=== PATIENT | female | born 1955 | race Caucasian/White ===

== ENCOUNTER 2020-04-27 14:57 | Outpatient (REF) | payer OTHER, SELFPAY ==
[2020-04-27 17:17] LABS: COVID-19 Test Negative (Negative)
== END 2020-04-27 14:58 | disposition home or self-care (01) ==
LOC: HO.LAB 14:57
PROVIDERS: Visit Provider Internal Medicine
DX: Z20.828 Contact with and (suspected) exposure to other viral communicable diseases (principal)
CPT/HCPCS: 87635

== ENCOUNTER 2020-05-22 14:03 | Outpatient (REF) | payer OTHER, SELFPAY ==
--- NOTE | 2020-05-22 14:34 | XR_ITS ---
EXAMINATION: XR SHOULDER, RIGHT CLINICAL INFORMATION: Pain in right shoulder COMPARISON: None TECHNIQUE: Three views of the right shoulder. FINDINGS: No fracture or dislocation. The glenohumeral joint is well aligned. The joint space is maintained. Mild hypertrophic degenerative change of the acromioclavicular joint. The visualized lung is clear. The visualized ribs are intact. XR/XR shoulder RT min 2V IMPRESSION: Mild degenerative changes of the right acromioclavicular joint.
== END 2020-05-22 14:04 | disposition home or self-care (01) ==
LOC: HO.HOSX 14:03
PROVIDERS: PCP Internal Medicine; Visit Provider Orthopaedic Surgery
DX: M25.511 Pain in right shoulder (principal); M19.011 Primary osteoarthritis, right shoulder
CPT/HCPCS: 73030; J1040

== ENCOUNTER 2020-10-29 10:43 | Outpatient (REF) | payer OTHER, SELFPAY ==
--- NOTE | ~2020-10-29 | US_ITS ---
EXAMINATION: US VENOUS ULTRASOUND WITH DOPPLER LOWER EXTREMITY, LEFT CLINICAL INFORMATION: Left leg pain and swelling. COMPARISON: None TECHNIQUE: Ultrasound of the deep veins is performed from the hip to the calf with compression sonography and color and pulse Doppler assessment. Spectral analysis with color-flow imaging is performed. FINDINGS: There is normal venous compression and respiratory variation and augmented flow. The visualized common femoral vein, superficial femoral vein, profunda femoral vein, popliteal vein, and the trifurcation region shows no evidence of deep venous thrombosis. There is a superficial thrombophlebitis of a varicosity that communicates with the left greater saphenous vein in the left mid and distal thigh. US/US venous duplex LE LT IMPRESSION: No evidence of DVT. Left mid and distal thigh superficial thrombophlebitis.
== END 2020-10-29 10:44 | disposition home or self-care (01) ==
LOC: HO.US 10:43
PROVIDERS: PCP Internal Medicine; Visit Provider Internal Medicine
DX: M79.605 Pain in left leg (principal); M79.89 Other specified soft tissue disorders
CPT/HCPCS: 93971

== ENCOUNTER → 2020-11-29 15:31 | Outpatient (BNVA) | payer OTHER, SELFPAY | PROVIDERS: PCP Internal Medicine; Visit Provider Surgery Vascular Surgery ==

== ENCOUNTER 2020-12-18 12:53 | Outpatient (REF) | payer OTHER, SELFPAY ==
--- NOTE | ~2020-12-18 | US_ITS ---
EXAMINATION: BILATERAL LOWER EXTREMITY VENOUS ULTRASOUND (Reflux Exam) CLINICAL INDICATION: This is a 65-year-old female with varicose veins. Venous insufficiency. COMPARISON: None. TECHNIQUE: Color flow triplex imaging and compression Doppler was performed to evaluate both the deep and the superficial systems bilaterally. To evaluate the superficial system, the examination was performed in the upright position. Color-flow Doppler ultrasound and compression ultrasound were utilized. In addition, maneuvers were utilized to demonstrate reflux. FINDINGS: 1. DEEP VENOUS ULTRASOUND OF THE RIGHT LOWER EXTREMITY: Common Femoral Vein: Compressible, normal respiratory variation and augmented flow. Femoral vein: Compressible, normal color flow and augmentation. Popliteal Vein: There is reflux in the right popliteal vein of 4016 ms. Deep Reflux: There is no evidence of reflux in the deep system in the common femoral vein however there is reflux in the popliteal vein. . There is no evidence of a Enriquez's cyst. 2. SUPERFICIAL ULTRASOUND WITH DOPPLER OF RIGHT LOWER EXTREMITY GREAT SAPHENOUS VEIN: Saphenofemoral junction: 1.0 cm. The reflux time at the junction is 1472 ms. Mid thigh: 0.2 cm. The reflux time is 648 ms. Above knee: 0.2 cm. There is no reflux at this level. Below knee: 0.2 cm. The reflux time is 3416 ms. Mid calf: 0.2 cm. The reflux time is 1784 ms per Ankle: 0.2 cm. There is no reflux this level. GSV REFLUX: There is great saphenous vein reflux which is also seen at the junction. DUPLICATED GREAT SAPHENOUS VEIN: None SMALL SAPHENOUS VEIN: Upper: 0.2 cm Lower: 0.1 cm SSV REFLUX: No evidence of reflux. VEIN OF GIACOMINI: None Imaged. PERFORATORS: There are 0.2 and 0.4 cm hob grinder seen in the mid thigh and calf, respectively, without evidence of reflux. VARICOSITIES: There are 0.5 cm proximal thigh varicose veins with reflux time of 3436 ms. 3. DEEP VENOUS ULTRASOUND OF THE LEFT LOWER EXTREMITY: Common Femoral Vein: There is reflux in the common femoral vein of 1028 ms. Femoral vein: Compressible, normal color flow and augmentation. Popliteal Vein: Compressible, normal augmentation. Deep Reflux: There is no evidence of reflux in the deep system in either the common femoral vein but not the popliteal vein. There is no evidence of a Enriquez's cyst. 4. SUPERFICIAL ULTRASOUND WITH DOPPLER OF LEFT LOWER EXTREMITY GREAT SAPHENOUS VEIN: Saphenofemoral junction: 0.8 cm. There is no reflux at the junction. Mid thigh: 0.2 cm. The reflux time is 3360 ms. Above knee: 0.3 cm. The reflux time is 3348 ms. Below knee: 0.2 cm there is there is no reflux. Mid calf: 0.3 cm. The reflux time is 3104 ms. Ankle: 0.2 cm. The reflux time is 2500 ms. GSV REFLUX: There is reflux in the great saphenous vein but not present at the junction. DUPLICATED GREAT SAPHENOUS VEIN: None SMALL SAPHENOUS VEIN: Upper: 0.3 cm. There is no reflux at the junction. Lower: 0.2 cm. There is reflux in the mid calf as well as the distal calf. The distal calf reflux measures 1200 ms. SSV REFLUX: No evidence of reflux. VEIN OF GIACOMINI: None Imaged. PERFORATORS: There are 0.2 cm mid thigh perforators with reflux. VARICOSITIES: There are 0.3 cm varicose veins in the proximal thigh, at the knee, proximal calf with greater than 3 seconds of reflux throughout. US/US venous duplex LE BI IMPRESSION: 1. There is a patent right great saphenous vein with reflux at the saphenofemoral junction. 2. There is a patent right small saphenous vein without evidence of reflux. 3. There are perforators in the right leg without reflux. 4. There are varicose veins in the proximal thigh with greater than 3 seconds of reflux. 5. There is a patent left great saphenous vein without evidence of reflux at the junction. However, there is reflux extending throughout the remainder of the great saphenous vein. 6. There is a patent left small saphenous vein without reflux junction. However, there is reflux below this level. 7. There is a mid thigh hob grinder without reflux. 8. There are varicose veins present as noted throughout the left leg with greater than 3 seconds of reflux. 9. Deep vein reflux as noted bilaterally. In particular, the right popliteal vein and left common femoral vein, respectively.
== END 2020-12-18 12:54 | disposition home or self-care (01) ==
LOC: HO.US 12:53
PROVIDERS: Visit Provider Surgery Vascular Surgery
DX: I83.893 Varicose veins of bilateral lower extremities with other complications (principal); I83.12 Varicose veins of left lower extremity with inflammation
CPT/HCPCS: 93970

== ENCOUNTER → 2021-01-08 15:31 | Outpatient (BNVA) | payer OTHER, SELFPAY | PROVIDERS: PCP Internal Medicine; Visit Provider Surgery Vascular Surgery ==

== ENCOUNTER → 2021-02-22 08:25 | Outpatient (BNVA) | payer OTHER, SELFPAY | PROVIDERS: PCP Internal Medicine; Visit Provider Surgery Vascular Surgery | DX: I83.12 Varicose veins of left lower extremity with inflammation (principal) | CPT/HCPCS: 36475 ==

== ENCOUNTER 2021-02-25 11:16 | Outpatient (REF) | payer OTHER, SELFPAY ==
--- NOTE | ~2021-02-25 | US_ITS ---
EXAMINATION: US VENOUS ULTRASOUND WITH DOPPLER LOWER EXTREMITY, LEFT CLINICAL INFORMATION: This is a 65-year-old female who status post left leg radiofrequency ablation. COMPARISON: Comparison is made to a previous study dated 12/18/2020. TECHNIQUE: Ultrasound of the deep veins is performed from the hip to the calf with compression sonography and color and pulse Doppler assessment. Spectral analysis with color-flow imaging is performed. FINDINGS: There is normal venous compression and respiratory variation and augmented flow. The visualized common femoral vein, superficial femoral vein, profunda femoral vein, popliteal vein, and the trifurcation region shows no evidence of deep venous thrombosis. There is no significant popliteal fossa cyst. The left great saphenous vein appears to be closed. The occluded segment of left great saphenous vein begins 3.6 cm from the saphenofemoral junction. There is no extension of thrombus into the deep venous system. US/US venous duplex LE LT IMPRESSION: 1. No DVT demonstrated in the left lower extremity. 2. The left great saphenous vein appears close.
== END 2021-02-25 11:17 | disposition home or self-care (01) ==
LOC: HO.US 11:16
PROVIDERS: PCP Internal Medicine; Visit Provider Surgery Vascular Surgery
DX: M79.605 Pain in left leg (principal)
CPT/HCPCS: 93971

== ENCOUNTER → 2021-03-05 09:21 | Outpatient (BNVA) | payer OTHER, SELFPAY | PROVIDERS: PCP Internal Medicine; Referring Provider Internal Medicine; Visit Provider Surgery Vascular Surgery ==

== ENCOUNTER 2021-05-08 07:59 | Outpatient (REF) | payer OTHER, SELFPAY ==
--- NOTE | ~2021-05-08 | MM_ITS ---
EXAMINATION: MM SCREENING DIGITAL BREAST TOMOSYNTHESIS, LEFT CLINICAL INFORMATION: Screening. Asymptomatic. Due for yearly. Prior right mastectomy for breast cancer, 2013. COMPARISON: Mammography: 03/15/2020, 10/12/2018, 08/12/2017, 04/13/2015 TECHNIQUE: Digital breast tomosynthesis is performed in both the craniocaudal and mediolateral oblique views along with computer-aided detection (CAD). Synthesized 2D images are generated from the tomosynthesis. Additional exaggerated left CC view is provided. FINDINGS: There are scattered areas of fibroglandular density (ACR BI-RADS breast composition Category b). There are no significant masses, abnormal calcifications, or other abnormalities. Parenchymal pattern is similar to prior studies. There is no developing density. The axilla and skin contours are unremarkable. MM/MM tomosynthesis screening LT IMPRESSION: No mammographic evidence of malignancy. ASSESSMENT: BI-RADS 1: Negative RECOMMENDATION: Routine annual mammography screening. This patient's information was entered into a reminder system with a target due date for their next mammogram.
== END 2021-05-08 08:00 | disposition home or self-care (01) ==
LOC: HO.MAMMO 07:59
PROVIDERS: PCP Internal Medicine; Referring Provider Obstetrics & Gynecology; Visit Provider Internal Medicine
DX: Z12.31 Encounter for screening mammogram for malignant neoplasm of breast (principal)
CPT/HCPCS: 77063; 77067

== ENCOUNTER 2021-07-04 05:34 | Outpatient (REF) | payer OTHER, SELFPAY ==
--- NOTE | ~2021-07-04 | XR_ITS ---
EXAMINATION: XR HAND, RIGHT CLINICAL INFORMATION: Right hand pain. COMPARISON: None TECHNIQUE: PA, lateral, and oblique views of the right hand. FINDINGS: Mild to moderate interphalangeal, second metacarpophalangeal, first carpometacarpal and triscaphe degenerative joint changes are seen. Interphalangeal degenerative joint changes are most pronounced in the distal interphalangeal joint of the second digit. There is no acute fracture or dislocation. The carpal bones are normally aligned. The distal radius and ulna are intact. The soft tissues show mild swelling most pronounced in the second digit. XR/XR hand RT min 3V IMPRESSION: Mild to moderate multilevel degenerative changes most consistent with osteoarthritis. No acute abnormality.
== END 2021-07-04 05:35 | disposition home or self-care (01) ==
LOC: HO.HOSX 05:34
PROVIDERS: Visit Provider Physician Assistant
DX: M18.11 Unilateral primary osteoarthritis of first carpometacarpal joint, right hand (principal)
CPT/HCPCS: 20600; 73130; J1020

== ENCOUNTER 2021-08-01 10:25 | Outpatient (REF) | payer OTHER, SELFPAY ==
--- NOTE | ~2021-08-01 | MM_ITS ---
EXAMINATION: BONE DENSITOMETRY CLINICAL INDICATION: Asymptomatic menopausal state. COMPARISON: None (current study represents initial baseline exam). TECHNIQUE: Using a [employer] DXA System (software version: 13.1) manufactured by [employer], dual-energy x-ray absorptiometry was performed of the lumbar spine and left hip. The images are of good technical quality. Summary results are attached. FINDINGS: AP SPINE L1-L4: BMD 1.246 g/cm2, Z-score 2.1, T-score 0.6, normal. LEFT FEMUR, NECK: BMD 0.651 g/cm2, Z-score -1.3, T-score -2.8, osteoporosis. LEFT FEMUR, TOTAL: BMD 0.756 g/cm2, Z-score -0.8, T-score -2.0, osteopenia. IDENTIFIED RISK FACTORS: Rheumatoid arthritis, menopause. HISTORY OF FRACTURE: None listed. MEDICATIONS: Multivitamin. MM/XR DEXA axial skeleton IMPRESSION: 1. DIAGNOSIS: Osteoporosis based on the lowest T-score value of -2.8 in the femoral neck applying World Health Organization criteria. 2. 10 10-YEAR FRACTURE RISK PREDICTION, FRAX: According to the guidelines, FRAX calculation should only be performed on patients in the osteopenia bone density category. 3. Treatment Recommendations: NOF guidelines recommend consideration for treatment in postmenopausal women and men age 50 and older presenting with the following: -A hip or vertebral (clinical or morphometric) fracture. -T-score less than or equal to -2.5 at the femoral neck or spine after appropriate evaluation to exclude secondary causes. -Low bone mass at the hip or spine and a 10-year fracture probability by FRAX of greater than or equal to 3% for hip fracture or greater than or equal to 20% for major osteoporotic fracture based on the [place] adapted WHO algorithm. 4. Other Recommendations: All treatment decisions require clinical judgment and consideration of individual patient factors, including patient preferences, comorbidities, previous drug use, risk factors not captured in the FRAX model (e.g. frailty, falls, vitamin D deficiency, increased bone turnover, interval significant decline in bone density) and possible under or overestimation of fracture risk by FRAX. Additional medical evaluation for secondary cause of low bone mineral density may be appropriate. FUTURE SCAN RECOMMENDATION: People with diagnosed cases of osteoporosis or at high risk for fracture should have regular bone mineral density tests. For patients eligible for Medicare, routine testing is allowed once every 2 years. The testing frequency can be increased to one year for patients who have rapidly progressing disease, those who are receiving or discontinuing medical therapy to restore bone mass, or have additional risk factors.
== END 2021-08-01 10:26 | disposition home or self-care (01) ==
LOC: HO.MAMMO 10:25
PROVIDERS: PCP Internal Medicine; Visit Provider Internal Medicine
DX: Z13.820 Encounter for screening for osteoporosis (principal); M81.0 Age-related osteoporosis without current pathological fracture; Z78.0 Asymptomatic menopausal state; Z79.899 Other long term (current) drug therapy
CPT/HCPCS: 77080

== ENCOUNTER 2022-05-20 15:05 | Outpatient (REF) | payer OTHER, SELFPAY ==
--- NOTE | ~2022-05-20 | MM_ITS ---
EXAMINATION: MM SCREENING DIGITAL BREAST TOMOSYNTHESIS, BILATERAL CLINICAL INFORMATION: Screening. Asymptomatic. Right mastectomy for breast cancer, 2014. Due for yearly. COMPARISON: Mammography: 05/08/2021, 03/15/2020, 10/12/2018, 08/12/2017 TECHNIQUE: Digital breast tomosynthesis is performed in both the craniocaudal and mediolateral oblique views along with computer-aided detection (CAD). Synthesized 2D images are generated from the tomosynthesis. FINDINGS: There are scattered areas of fibroglandular density (ACR BI-RADS breast composition Category b). There are no significant masses, abnormal calcifications, or other abnormalities. Parenchymal pattern is similar to prior studies. Fibronodular pattern mid medial breast is stable. There is no developing density or architectural abnormality. The axilla and skin contours are unremarkable. No significant changes. MM/MM tomosynthesis screening LT IMPRESSION: No mammographic evidence of malignancy. ASSESSMENT: BI-RADS 2: Benign RECOMMENDATION: Routine annual mammography screening. This patient's information was entered into a reminder system with a target due date for their next mammogram.
== END 2022-05-20 15:06 | disposition home or self-care (01) ==
LOC: HO.MAMMO 15:05
PROVIDERS: PCP Internal Medicine; Referring Provider Obstetrics & Gynecology; Visit Provider Internal Medicine
DX: Z12.31 Encounter for screening mammogram for malignant neoplasm of breast (principal)
CPT/HCPCS: 77063; 77067

== ENCOUNTER → 2022-07-21 11:29 | Outpatient (BNVA) | payer OTHER, SELFPAY | PROVIDERS: PCP Internal Medicine; Visit Provider Physician Assistant | DX: M18.11 Unilateral primary osteoarthritis of first carpometacarpal joint, right hand (principal) | CPT/HCPCS: 20600; J1020 ==

== ENCOUNTER 2022-08-02 08:45 | Outpatient (REF) | payer OTHER, SELFPAY ==
[2022-08-02 10:57] LABS: MANUAL DIFF FLAG NO
[2022-08-02 11:05] LABS: Appearance Urine Clear; Color Urine Yellow; Glucose Urine UA Negative (Negative); Leukocyte Esterase Urine Trace (Negative); Nitrite Urine Negative (Negative); PH 6.5 (5.0-9.0); UMIC TRIGGER UACC YES; Urine Blood Negative (Negative); Urine Ketones Negative (Negative); Urine Protein Negative (Neg-Trace)
[2022-08-02 11:06] LABS: Basophils Absolute Auto 0.1 X10*3/uL (0.0-0.2); Basophils Percent Auto 0.9 % (0-2); Eosinophils Absolute Auto 0.2 X10*3/uL (0.0-0.4); Eosinophils Percent Auto 2.7 % (0-4); Hematocrit 42.4 % (37.0-47.0); Hemoglobin 13.8 g/dl (12.0-16.0); Imm Gran Abs Auto 0.02 X10*3/uL (0.00-0.03); Imm Gran Pct Auto 0.3 % (0.0-0.4); Lymphocytes Absolute Auto 1.5 X10*3/uL (1.2-4.9); Lymphocytes Percent Auto 20.7 % (20-40); Mean Corpuscular HGB Conc 32.5 g/dl (31.0-35.0); Mean Corpuscular Hemoglobin 30.1 pg (27.0-33.0); Mean Corpuscular Volume 92.4 fL (80.0-98.0); Mean Platelet Volume 9.8 fL (9.4-12.3); Monocytes Absolute Auto 0.8 X10*3/uL (0.1-1.2); Monocytes Percent Auto 11.5 % (2-11); Neutrophils Absolute Auto 4.5 x10*3/uL (2.0-8.3); Neutrophils Percent Auto 63.9 % (45-73); Platelet Count 402 X10*3/uL (160-400); Red Blood Count 4.59 X10*6/uL (4.20-5.50); Red Cell Distribution Width 12.1 % (11.0-16.0)
[2022-08-02 11:10] LABS: Bacteria Urine None Seen (None Seen); Hyaline Casts Urine 0-2 /LPF (0-2); RBC Urine 0-2 /HPF (0-2); Squamous Epithelial Cell Urine 0-2 /HPF (0-2); WBC Urine 0-5 /HPF (0-5)
[2022-08-02 11:27] LABS: Alanine Aminotransferase 9 U/L (0-31); Albumin Level 4.4 g/dL (3.5-5.0); Alkaline Phosphatase 84 U/L (39-117); Anion Gap 13 (12-20); Aspartate Amino Transferase 17 U/L (5-31); Bilirubin Total 0.6 mg/dL (0.0-1.0); Blood Urea Nitrogen 18 mg/dL (9-16); Calcium 9.9 mg/dL (8.4-10.2); Carbon Dioxide 27 mmol/L (22-29); Chloride 106 mmol/L (96-108); Cholesterol 258 mg/dL; Estimated Glomerular Filt Rate > 60; Glucose Random 100 mg/dL (60-115); HDL Cholesterol 73 mg/dL; LDL Cholesterol Calculated 167 mg/dl; Potassium 4.6 mmol/L (3.3-5.1); Sodium 141 mmol/L (135-145); Total Protein 7.1 g/dL (6.5-8.0); Triglycerides 92 mg/dL
[2022-08-02 11:46] LABS: Free T4 (Free Thyroxine) 0.91 ng/dL (0.71-1.85); Thyroid Stimulating Hormone 1.66 uIU/mL (0.32-4.0); Vitamin D 25-OH Total 41.4 ng/mL (>30)
[2022-08-04 04:22] LABS: ~HepC Num1 0.13 S/CO (0.00-0.79); ~Hepatitis C Antibody Nonreactive (Nonreactive)
[2022-08-05 17:59] LABS: Calcium (PTHI) 9.9 mg/dL (8.6-10.4); PTHI 38 pg/mL (16-77)
== END 2022-08-02 08:46 | disposition home or self-care (01) ==
LOC: HO.HMGCLDS 08:45
PROVIDERS: PCP Internal Medicine; Visit Provider Internal Medicine
DX: Z11.59 Encounter for screening for other viral diseases (principal); R35.1 Nocturia; M81.6 Localized osteoporosis [Lequesne]; E78.00 Pure hypercholesterolemia, unspecified
CPT/HCPCS: 36415; 80053; 80061; 81001; 81003; 82306; 83970; 84439; 84443; 85025; 86803

== ENCOUNTER 2022-11-29 07:49 | Emergency (ER) | payer OTHER, SELFPAY ==
[2022-11-29] VITALS (8 sets, daily range): BP systolic 107–144; BP diastolic 49–61; PULSE 94–115; RESP 16–24; TEMP 37.1–39.1; O2SAT 95–98; BMI 21.1
--- NOTE | ~2022-11-29 | CT_ITS ---
Examination: CT facial bones. Chest x-ray. Clinical indications: Post right dental extraction complains of facial redness, swelling and high temperature. COMPARISON: None. TECHNIQUE: 3 mm thin axial and reformatted 1.5 minutes thin images of facial bones were obtained. DLP 243. This CT examination was performed using dose optimization technique as appropriate, variously including the following: Automated exposure control Adjustment of MA and/or KV according to patient size(this includes techniques or standardized protocols for targeted exams where dose is matched to indication/reason for exam; extremities or head. Use of iterative reconstruction techniques. Findings: There is mild mucoperiosteal thickening right maxillary sinus. The left maxillary, ethmoid, sphenoid and the frontal sinuses are well-aerated. There is normal patency of the drainage sinus pathways. There is mild deviation nasal septum to the left. The turbinates and the nasopharyngeal airway is unremarkable. Bilateral optic globes, optic nerve and bony orbits are intact. The maxillofacial bones, mandible and the TMJs are normal. There is a missing right upper second premolar tooth with postsurgical changes. There is significant dental amalgam seen bilaterally with the Thursday artifact restriction oral cavity evaluation. The soft tissues are normal. The airways widely patent. CT/CT facial bones wo IV con IMPRESSION: No acute process seen in the neck except for recent surgical removal of right lower first molar tooth. Mild mucoperiosteal thickening right maxillary sinus.
--- NOTE | 2022-11-29 08:06 | ED_ITS ---
HPI - Allergic Reaction General Chief complaint: Fever Stated complaint: ALLERGIC REACTION Time Seen by Provider: 11/29/22 07:57 Source: patient Mode of arrival: ambulatory Limitations: no limitations History of Present Illness HPI narrative: Patient with no history of allergic reaction finished 7 days of amoxicillin for dental infection yesterday noticed erythematous rash all over the body since yesterday vomited once slight lip swelling no difficulty in breathing itching all over patient has taken amoxicillin before without any allergic reaction in the ER patient noticed to have temperature of 101 degrees Related Data Previous Rx's Medication Instructions Recorded diphenhydramine HCl 25 mg capsule 50 mg PO Q6-8H PRN allergic 11/29/22 (Benadryl) reaction #30 caps epinephrine 0.3 mg/0.3 mL 0.3 mg (0.3 mL) IM Q4H PRN 11/29/22 injection, auto-injector (EpiPen) anaphylaxis #2 ea prednisone 20 mg tablet 40 mg PO DAILY #10 tabs 11/29/22 Allergies Allergy/AdvReac Type Severity Reaction Status Date / Time amoxicillin Allergy Severe Anaphylaxis Verified 11/29/22 15:37 Review of Systems Review of Systems: Yes all other systems are reviewed and are negative PMF Past Medical History Surgical History History of tonsillectomy Hx of mastectomy Family History Family History Mother Breast cancer Father CVD (cardiovascular disease) Social History Social History Alcohol intake: never Smoked in Last 30 Days: No Use of substances other than those prescribed or required for medical reasons: No Advance Directives: No Advance Directives Information Provided: Yes 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al status: employed 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: [employer]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 Physical Exam ED Vital Signs: Vital Signs - 24 hr 11/29/22 07:59 11/29/22 08:19 11/29/22 08:51 Temperature 101 F H 102.4 F H Pulse Rate 112 H 115 H 112 H Respiratory Rate 16 22 H Blood Pressure 144/55 H 114/61 108/56 L Pulse Oximetry 98 96 Oxygen Delivery Method Room Air Room Air 11/29/22 09:17 11/29/22 09:50 11/29/22 10:49 Temperature 102.0 F H 100.6 F H 99.7 F Pulse Rate 113 H 105 H Respiratory Rate 20 24 H Blood Pressure 108/50 L 107/49 L Pulse Oximetry 95 95 Oxygen Delivery Method Room Air 11/29/22 11:45 11/29/22 12:29 Temperature 98.7 F Pulse Rate 94 111 H Respiratory Rate 19 Blood Pressure 110/59 L 121/55 L Pulse Oximetry 97 Oxygen Delivery Method Room Air BMI result Body Mass Index 21.1 Appearance: Alert. Oriented X3. No acute distress. Eyes: PERRLA, No Nystagmus ENT: Pharynx normal. Oral Mucosa moist uvula normal Neck: Normal inspection. Neck supple. CVS: Normal heart rate and rhythm. Pulses normal. Respiratory: No respiratory distress. Equal air entry bilateral, no wheezing/rales/rhonchi Abdomen: Soft and nontender. Bowel sounds are present, no mass palpable, no CVA tenderness Skin: Skin warm and dry. Diffuse erythematous rash all over the body Normal skin turgor. Extremities: No lower extremity edema. No calf tenderness Neuro: Oriented X 3. No motor deficit. No sensory deficit.No cerebellar signs , cranial nerves II-XII intact Medications Administered Discontinued Medications Generic Name Dose Route Start Last Admin Trade Name Freq PRN Reason Stop Dose Admin Acetaminophen 650 mg 11/29/22 08:03 11/29/22 08:21 Acetaminophen 325 Mg Tablet PO 11/29/22 08:04 650 mg ONCE ONE Administration Dexamethasone Sodium Phosphate 10 mg 11/29/22 11:38 11/29/22 11:46 Dexamethasone Sod Phosphate 10 Mg/Ml Vial IVPUSH 11/29/22 11:39 10 mg ONCE ONE Administration Diphenhydramine HCl 25 mg 11/29/22 08:01 11/29/22 08:25 Diphenhydramine Hcl 50 Mg/Ml Vial IVPUSH 11/29/22 08:02 25 mg ONCE ONE Administration Epinephrine 0.3 mg 11/29/22 08:01 11/29/22 08:19 Epinephrine 1 Mg/Ml Vial IM 11/29/22 08:02 0.3 mg STAT STA Administration Epinephrine 0.3 mg 11/29/22 11:38 11/29/22 11:45 Epinephrine 1 Mg/Ml Vial IM 11/29/22 11:39 0.3 mg STAT STA Administration Famotidine 20 mg 11/29/22 08:22 11/29/22 08:32 Famotidine/Pf 20 Mg/2 Ml Vial IVPUSH 11/29/22 08:23 20 mg ONCE ONE Administration Sodium Chloride 1,000 mls @ 999 mls/hr 11/29/22 08:01 11/29/22 10:21 Ns IV 11/29/22 09:01 Infused .Q1H1M ONE Infusion Ceftriaxone Sodium 1 gm/ 50 mls @ 100 mls/hr 11/29/22 08:44 11/29/22 10:00 Sodium Chloride IV 11/29/22 09:13 Infused ONCE ONE Infusion Sodium Chloride 1,000 mls @ 999 mls/hr 11/29/22 09:42 11/29/22 12:00 Ns IV 11/29/22 10:42 Infused .Q1H1M ONE Infusion Vancomycin HCl 2,000 mg in 500 mls @ 250 mls/hr 11/29/22 09:46 11/29/22 10:22 Vancomycin/Ns IV 11/29/22 11:45 Not Given ONCE ONE Ceftriaxone Sodium 1 gm/ 50 mls @ 100 mls/hr 11/29/22 09:48 11/29/22 10:22 Sodium Chloride IV 11/29/22 10:17 Infused ONCE ONE Infusion Vancomycin HCl 1,500 mg/ 500 mls @ 333.333 mls/hr 11/29/22 09:50 11/29/22 12:00 Sodium Chloride IV 11/29/22 11:19 Infused ONCE ONE Infusion Ibuprofen 600 mg 11/29/22 09:46 11/29/22 10:05 Ibuprofen 600 Mg Tablet PO 11/29/22 09:47 600 mg ONCE ONE Administration Methylprednisolone Sodium Succinate 125 mg 11/29/22 08:01 11/29/22 08:27 Methylprednisolone Sod Succ 125 Mg/2 Ml Vial IVPUSH 11/29/22 08:02 125 mg ONCE ONE Administration Medical Decision Making Medical Decision Making MDM Narrative: Patient with an affair any reaction with leukocytosis and fever and bandemia likely from anaphylaxis unclear whether she has infection or not at this time there is no source of infection patient received vancomycin 2 g and Rocephin 2 g prophylactically received IV fluids feeling much better after EpiPen patient has to attend her daughter's wedding requesting to go home will come back in case rash continues or has fever or does feel good patient work in [employer] will discharge her home advised to come back in case fever comes back comes back meanwhile blood cultures were done and patient receive antibiotic which is good for 24 hour Lab Data MDM Lab Attestation statement: I reviewed the patient's lab results. 11/29/22 08:16 11/29/22 08:16 Labs: Lab Results 11/29/22 11/29/22 11/29/22 Range/Units 08:16 08:16 08:16 WBC 23.2 H (4.8-10.8) X10*3/uL RBC 4.52 (4.20-5.50) X10*6/uL Hgb 13.9 (12.0-16.0) g/dl Hct 41.1 (37.0-47.0) % MCV 90.9 (80.0-98.0) fL MCH 30.8 (27.0-33.0) pg MCHC 33.8 (31.0-35.0) g/dl RDW 12.2 (11.0-16.0) % Plt Count 329 (160-400) X10*3/uL MPV 9.3 L (9.4-12.3) fL Immature Gran % (Auto) 0.4 (0.0-0.4) % Neut % (Auto) 96.1 H (45-73) % Lymph % (Auto) 1.0 L (20-40) % [place] % (Auto) 1.4 L (2-11) % Eos % (Auto) 1.0 (0-4) % Baso % (Auto) 0.1 (0-2) % Lymph # (Auto) 0.2 L (1.2-4.9) X10*3/uL [place] # (Auto) 0.3 (0.1-1.2) X10*3/uL Eos # (Auto) 0.2 (0.0-0.4) X10*3/uL Baso # (Auto) 0.0 (0.0-0.2) X10*3/uL Abs Immat Gran (auto) 0.09 H (0.00-0.03) X10*3/uL Absolute Neuts (auto) 22.3 H (2.0-8.3) x10*3/uL Absolute Nucleated RBC 0.000 (0.0-0.012) X10*3/uL Nucleated RBC % (auto) 0.0 (0.0-0.2) /100WBC Smear Tech's Comments VERIFIED Sodium 134 L (135-145) mmol/L Potassium 4.2 (3.3-5.1) mmol/L Chloride 101 (96-108) mmol/L Carbon Dioxide 24 (22-29) mmol/L Anion Gap 13 (12-20) BUN 10 (9-16) mg/dL Creatinine 1.03 (0.5-1.4) mg/dL Estim Creat Clear Calc 47.0 Estimated GFR 54 Random Glucose 173 H (60-115) mg/dL Lactic Acid (0.5-2.0) mmol/L Lactic Acid F/U @ 2Hr (0.5-2.0) mmol/L Calcium 9.4 (8.4-10.2) mg/dL Total Bilirubin 0.8 (0.0-1.0) mg/dL Direct Bilirubin 0.3 (0.0-0.5) mg/dL AST 41 H (5-31) U/L ALT 26 (0-31) U/L Alkaline Phosphatase 79 (39-117) U/L C-Reactive Protein 7.83 H (< or = 0.50) mg/dL Total Protein 6.9 (6.5-8.0) g/dL Albumin 4.2 (3.5-5.0) g/dL Urine Color Urine Appearance Urine pH (5.0-9.0) Ur Specific [place] (1.005-1.025) Urine Protein (Neg-Trace) mg/dL Urine Glucose (UA) (Negative) mg/dL Urine Ketones (Negative) mg/dL Urine Blood (Negative) Urine Nitrite (Negative) Ur Leukocyte Esterase (Negative) COVID-19 (XAVIER) (Negative) COVID-19 Clin Com Influenza Type A (WENDY) Negative (Negative) Influenza Type B (WENDY) Negative (Negative) Influenza A & B Note See Note 11/29/22 11/29/22 11/29/22 Range/Units 08:16 08:16 10:33 WBC (4.8-10.8) X10*3/uL RBC (4.20-5.50) X10*6/uL Hgb (12.0-16.0) g/dl Hct (37.0-47.0) % MCV (80.0-98.0) fL MCH (27.0-33.0) pg MCHC (31.0-35.0) g/dl RDW (11.0-16.0) % Plt Count (160-400) X10*3/uL MPV (9.4-12.3) fL Immature Gran % (Auto) (0.0-0.4) % Neut % (Auto) (45-73) % Lymph % (Auto) (20-40) % [place] % (Auto) (2-11) % Eos % (Auto) (0-4) % Baso % (Auto) (0-2) % Lymph # (Auto) (1.2-4.9) X10*3/uL [place] # (Auto) (0.1-1.2) X10*3/uL Eos # (Auto) (0.0-0.4) X10*3/uL Baso # (Auto) (0.0-0.2) X10*3/uL Abs Immat Gran (auto) (0.00-0.03) X10*3/uL Absolute Neuts (auto) (2.0-8.3) x10*3/uL Absolute Nucleated RBC (0.0-0.012) X10*3/uL Nucleated RBC % (auto) (0.0-0.2) /100WBC Smear Tech's Comments Sodium (135-145) mmol/L Potassium (3.3-5.1) mmol/L Chloride (96-108) mmol/L Carbon Dioxide (22-29) mmol/L Anion Gap (12-20) BUN (9-16) mg/dL Creatinine (0.5-1.4) mg/dL Estim Creat Clear Calc Estimated GFR Random Glucose (60-115) mg/dL Lactic Acid 2.1 H* (0.5-2.0) mmol/L Lactic Acid F/U @ 2Hr 1.0 (0.5-2.0) mmol/L Calcium (8.4-10.2) mg/dL Total Bilirubin (0.0-1.0) mg/dL Direct Bilirubin (0.0-0.5) mg/dL AST (5-31) U/L ALT (0-31) U/L Alkaline Phosphatase (39-117) U/L C-Reactive Protein (< or = 0.50) mg/dL Total Protein (6.5-8.0) g/dL Albumin (3.5-5.0) g/dL Urine Color Urine Appearance Urine pH (5.0-9.0) Ur Specific [place] (1.005-1.025) Urine Protein (Neg-Trace) mg/dL Urine Glucose (UA) (Negative) mg/dL Urine Ketones (Negative) mg/dL Urine Blood (Negative) Urine Nitrite (Negative) Ur Leukocyte Esterase (Negative) COVID-19 (XAVIER) Negative (Negative) COVID-19 Clin Com See Note Influenza Type A (WENDY) (Negative) Influenza Type B (WENDY) (Negative) Influenza A & B Note 11/29/22 Range/Units 11:18 WBC (4.8-10.8) X10*3/uL RBC (4.20-5.50) X10*6/uL Hgb (12.0-16.0) g/dl Hct (37.0-47.0) % MCV (80.0-98.0) fL MCH (27.0-33.0) pg MCHC (31.0-35.0) g/dl RDW (11.0-16.0) % Plt Count (160-400) X10*3/uL MPV (9.4-12.3) fL Immature Gran % (Auto) (0.0-0.4) % Neut % (Auto) (45-73) % Lymph % (Auto) (20-40) % [place] % (Auto) (2-11) % Eos % (Auto) (0-4) % Baso % (Auto) (0-2) % Lymph # (Auto) (1.2-4.9) X10*3/uL [place] # (Auto) (0.1-1.2) X10*3/uL Eos # (Auto) (0.0-0.4) X10*3/uL Baso # (Auto) (0.0-0.2) X10*3/uL Abs Immat Gran (auto) (0.00-0.03) X10*3/uL Absolute Neuts (auto) (2.0-8.3) x10*3/uL Absolute Nucleated RBC (0.0-0.012) X10*3/uL Nucleated RBC % (auto) (0.0-0.2) /100WBC Smear Tech's Comments Sodium (135-145) mmol/L Potassium (3.3-5.1) mmol/L Chloride (96-108) mmol/L Carbon Dioxide (22-29) mmol/L Anion Gap (12-20) BUN (9-16) mg/dL Creatinine (0.5-1.4) mg/dL Estim Creat Clear Calc Estimated GFR Random Glucose (60-115) mg/dL Lactic Acid (0.5-2.0) mmol/L Lactic Acid F/U @ 2Hr (0.5-2.0) mmol/L Calcium (8.4-10.2) mg/dL Total Bilirubin (0.0-1.0) mg/dL Direct Bilirubin (0.0-0.5) mg/dL AST (5-31) U/L ALT (0-31) U/L Alkaline Phosphatase (39-117) U/L C-Reactive Protein (< or = 0.50) mg/dL Total Protein (6.5-8.0) g/dL Albumin (3.5-5.0) g/dL Urine Color Yellow Urine Appearance Clear Urine pH 6.0 (5.0-9.0) Ur Specific [place] 1.010 (1.005-1.025) Urine Protein Negative (Neg-Trace) mg/dL Urine Glucose (UA) Negative (Negative) mg/dL Urine Ketones 15 (Negative) mg/dL Urine Blood Negative (Negative) Urine Nitrite Negative (Negative) Ur Leukocyte Esterase Negative (Negative) COVID-19 (XAVIER) (Negative) COVID-19 Clin Com Influenza Type A (WENDY) (Negative) Influenza Type B (WENDY) (Negative) Influenza A & B Note Critical Care Time Critical Care Time Critical Care Time: Yes Total Critical Care Time: 120 Attestation: The patient was critically ill with a high probability of imminent or life t hreatening deterioration. I spent greater than 125 minutes of discontinuous time evaluating the patient,delivering critical care at the bedside, discussing and evaluating pertinent data with consultants. Critical care time does not include time spent performing separately billable procedures or teaching. Total time spent performing critical care was 120 minutes. Discharge Plan Discharge Clinical Impression: Anaphylactic reaction, Leukocytosis Patient Disposition: Home, Self-Care Instructions: General Allergic Reaction (ED) Additional Instructions: Your symptoms likely from anaphylactic reaction to amoxicillin Do not take penicillin or amoxicillin You had fever and elevated WBC count which could be from the anaphylaxis or possible sepsis If fever continues come back to the hospital for admission and IV antibiotics Benadryl and prednisone for allergic reaction Use EpiPen for severe allergic reaction as needed Prescriptions: New diphenhydramine HCl [Benadryl] 25 mg capsule 50 mg PO Q6-8H PRN (Reason: allergic reaction) Qty: 30 0RF prednisone 20 mg tablet 40 mg PO DAILY Qty: 10 0RF epinephrine [EpiPen] 0.3 mg/0.3 mL auto-injector 0.3 mg IM Q4H PRN (Reason: anaphylaxis) Qty: 2 0RF Interventions: ED Discharge Assessment Last Done: 11/29/22 12:54 Discharge Date/Time: 11/29/22 12:54
[2022-11-29] MEDS: EPINEPHrine 1 MG/ML VIAL 0.3 MG IM ×2 (08:19→11:45)
[2022-11-29] MEDS: 0.9 % Sodium Chloride 1,000 ML 999 ML IV ×2 (08:19→10:14)
[2022-11-29] MEDS: Acetaminophen 325 MG TABLET 650 MG PO (08:21)
[2022-11-29 08:24] LABS: Basophils Percent Auto 0.1 % (0-2); Eosinophils Absolute Auto 0.2 X10*3/uL (0.0-0.4); Hematocrit 41.1 % (37.0-47.0); Hemoglobin 13.9 g/dl (12.0-16.0); Imm Gran Abs Auto 0.09 X10*3/uL (0.00-0.03); Imm Gran Pct Auto 0.4 % (0.0-0.4); Lymphocytes Absolute Auto 0.2 X10*3/uL (1.2-4.9); MANUAL DIFF FLAG SCAN; Mean Corpuscular HGB Conc 33.8 g/dl (31.0-35.0); Mean Corpuscular Hemoglobin 30.8 pg (27.0-33.0); Mean Corpuscular Volume 90.9 fL (80.0-98.0); Mean Platelet Volume 9.3 fL (9.4-12.3); Monocytes Absolute Auto 0.3 X10*3/uL (0.1-1.2); Monocytes Percent Auto 1.4 % (2-11); Neutrophils Absolute Auto 22.3 x10*3/uL (2.0-8.3); Neutrophils Percent Auto 96.1 % (45-73); Platelet Count 329 X10*3/uL (160-400); Red Blood Count 4.52 X10*6/uL (4.20-5.50); Red Cell Distribution Width 12.2 % (11.0-16.0); SCAN SMEAR FLAG 1; White Blood Count 23.2 X10*3/uL (4.8-10.8)
[2022-11-29] MEDS: diphenhydrAMINE HCL 50 MG/ML VIAL 25 MG IVPUSH (08:25)
[2022-11-29] MEDS: methylPREDNISolone Sod Succ 125 MG/2 ML VIAL IVPUSH (08:27)
[2022-11-29] MEDS: Famotidine/PF 20 MG/2 ML VIAL IVPUSH (08:32)
[2022-11-29 08:40] LABS: Anion Gap 13 (12-20); Blood Urea Nitrogen 10 mg/dL (9-16); Calcium 9.4 mg/dL (8.4-10.2); Carbon Dioxide 24 mmol/L (22-29); Chloride 101 mmol/L (96-108); Estimated Glomerular Filt Rate 54; Glucose Random 173 mg/dL (60-115); Potassium 4.2 mmol/L (3.3-5.1); Sodium 134 mmol/L (135-145)
[2022-11-29 08:43] LABS: SLIDE REVIEW VERIFIED
[2022-11-29 08:44] LABS: COVID-19 Test Negative (Negative); IDNOW Serial# 08D9AD1C; IDNOW Serial# 9DB6401D; Influenza A Negative (Negative); Influenza B2 Negative (Negative)
[2022-11-29] MEDS: cefTRIAXone sodium 1 GM in 0.9 % Sodium Chloride 50 ML IV ×2 (09:22→10:04)
--- NOTE | 2022-11-29 09:32 | PC.NURSE ---
pt is a/o x 4 no sob/ashok noted speaks in full sentences. lungs -cta. heart sounds regular. general body very kira raised rash/hives. heplock # 20 to l ac. seen by md, pt/ aware of plan of care.
[2022-11-29 09:36] LABS: Lactic Acid 2.1 mmol/L (0.5-2.0)
[2022-11-29] MEDS: Ibuprofen 600 MG TABLET PO (10:05)
[2022-11-29 10:09] LABS: Alanine Aminotransferase 26 U/L (0-31); Albumin Level 4.2 g/dL (3.5-5.0); Alkaline Phosphatase 79 U/L (39-117); Aspartate Amino Transferase 41 U/L (5-31); Bilirubin Direct 0.3 mg/dL (0.0-0.5); Bilirubin Total 0.8 mg/dL (0.0-1.0); C Reactive Protein 7.83 mg/dL (< or = 0.50); Total Protein 6.9 g/dL (6.5-8.0)
[2022-11-29] MEDS: vancomycin HCL 1,500 MG in 0.9 % Sodium Chloride 500 ML 333.33 MG IV (10:17)
[2022-11-29 10:19] LABS: Reflex Lactate? Lactic Acid Added
[2022-11-29 11:39] LABS: Appearance Urine Clear; Color Urine Yellow; Glucose Urine UA Negative (Negative); Leukocyte Esterase Urine Negative (Negative); Nitrite Urine Negative (Negative); Urine Blood Negative (Negative); Urine Ketones 15 mg/dL (Negative); Urine Protein Negative (Neg-Trace)
[2022-11-29] MEDS: dexAMETHasone sod phosphate 10 MG/ML VIAL IVPUSH (11:46)
--- NOTE | 2022-11-29 12:37 | PC.NURSE ---
pt a/o x 4 no sob/ashok noted speaks in full sentences. rash to gen body is resolving. pt amb (i) gait steady to bathroom and btb. aware. pt to be d/c home.
== END 2022-11-29 12:54 | disposition home or self-care (01) ==
PROVIDERS: Emergency Provider Internal Medicine; PCP Internal Medicine
DX: R21 Rash and other nonspecific skin eruption (principal); T88.6XXA Anaphylactic reaction due to adverse effect of correct drug or medicament properly administered, initial encounter; T36.0X5A Adverse effect of penicillins, initial encounter; Y92.9 Unspecified place or not applicable; D72.829 Elevated white blood cell count, unspecified; Z20.822 Contact with and (suspected) exposure to COVID-19
CPT/HCPCS: 36415; 70486; 71045; 80048; 80076; 81003; 83605; 85025; 86140; 87040; 87147; 87205; 87502; 87635; 96361; 96365; 96366; 96367; 96372; 96375; 99285; J0171; J0696; J1100; J1200; J2930; J3371

== ENCOUNTER 2022-11-30 11:43 | Observation (INO) | payer OTHER, SELFPAY ==
[2022-11-30 11:59] VITALS: BP 117/70; PULSE 90; RESP 16; TEMP 37.3; O2SAT 99; BMI 21.1
[2022-11-30] MEDS: 0.9 % Sodium Chloride 1,000 ML 999 ML IV (12:33)
[2022-11-30] MEDS: dexAMETHasone sod phosphate 10 MG/ML VIAL IVPUSH (12:33)
[2022-11-30 12:34] VITALS: BP 117/70; PULSE 80
[2022-11-30] MEDS: Famotidine/PF 20 MG/2 ML VIAL IVPUSH ×2 (12:34→21:11)
[2022-11-30] MEDS: EPINEPHrine 1 MG/ML VIAL 0.3 MG IM (12:34)
[2022-11-30 12:36] LABS: Basophils Percent Auto 0.1 % (0-2); Eosinophils Absolute Auto 0.7 X10*3/uL (0.0-0.4); Eosinophils Percent Auto 2.5 % (0-4); Hematocrit 36.4 % (37.0-47.0); Hemoglobin 12.5 g/dl (12.0-16.0); Imm Gran Abs Auto 0.47 X10*3/uL (0.00-0.03); Imm Gran Pct Auto 1.8 % (0.0-0.4); Lymphocytes Absolute Auto 0.3 X10*3/uL (1.2-4.9); Lymphocytes Percent Auto 1.2 % (20-40); MANUAL DIFF FLAG SCAN; Mean Corpuscular HGB Conc 34.3 g/dl (31.0-35.0); Mean Corpuscular Hemoglobin 31.4 pg (27.0-33.0); Mean Corpuscular Volume 91.5 fL (80.0-98.0); Mean Platelet Volume 9.4 fL (9.4-12.3); Monocytes Absolute Auto 0.4 X10*3/uL (0.1-1.2); Monocytes Percent Auto 1.6 % (2-11); Neutrophils Absolute Auto 24.9 x10*3/uL (2.0-8.3); Neutrophils Percent Auto 92.8 % (45-73); Platelet Count 268 X10*3/uL (160-400); Red Blood Count 3.98 X10*6/uL (4.20-5.50); Red Cell Distribution Width 12.7 % (11.0-16.0); SCAN SMEAR FLAG 1; White Blood Count 26.8 X10*3/uL (4.8-10.8)
[2022-11-30 12:50] LABS: Alanine Aminotransferase 74 U/L (0-31); Albumin Level 3.2 g/dL (3.5-5.0); Alkaline Phosphatase 63 U/L (39-117); Anion Gap 12 (12-20); Aspartate Amino Transferase 93 U/L (5-31); Bilirubin Total 0.4 mg/dL (0.0-1.0); Blood Urea Nitrogen 17 mg/dL (9-16); Calcium 8.2 mg/dL (8.4-10.2); Carbon Dioxide 19 mmol/L (22-29); Chloride 107 mmol/L (96-108); Creatinine Clr Calc Pharmacy 46.5; Estimated Glomerular Filt Rate 53; Glucose Random 154 mg/dL (60-115); Potassium 4.2 mmol/L (3.3-5.1); Sodium 134 mmol/L (135-145); Total Protein 5.6 g/dL (6.5-8.0)
[2022-11-30 12:54] LABS: SLIDE REVIEW VERIFIED
--- NOTE | 2022-11-30 13:04 | ED_ITS ---
HPI - Allergic Reaction General Chief complaint: Skin/Abscess/Foreign Body Stated complaint: allergy reaction Time Seen by Provider: 11/30/22 11:49 Source: patient Mode of arrival: ambulatory Limitations: no limitations History of Present Illness HPI narrative: Patient was seen last night for anaphylactic reaction after using a amoxicillin along with had a fever with leukocytosis patient went home after appy comes back as rash reappears prior to arrival with facial swelling and fever 104 no shortness of breath no throat tightness patient has itching all over no blisters no oral lesion Related Data Home Medications Medication Instructions Recorded Confirmed calcium carbonate 500 mg calcium 500 mg PO DAILY 11/30/22 11/30/22 (1,250 mg) tablet chlorhexidine gluconate 0.12 % 15 ml PO BID 11/30/22 11/30/22 mouthwash ibuprofen 200 mg tablet 400 mg PO Q6H PRN Fever Or Pain 11/30/22 11/30/22 Previous Rx's Medication Instructions Recorded diphenhydramine HCl 25 mg capsule 50 mg PO Q6-8H PRN allergic 11/29/22 (Benadryl) reaction #30 caps epinephrine 0.3 mg/0.3 mL 0.3 mg (0.3 mL) IM Q4H PRN 11/29/22 injection, auto-injector (EpiPen) anaphylaxis #2 ea prednisone 20 mg tablet 40 mg PO DAILY #10 tabs 11/29/22 Allergies Allergy/AdvReac Type Severity Reaction Status Date / Time amoxicillin Allergy Severe Anaphylaxis Verified 11/29/22 15:37 Review of Systems Review of Systems: Yes all other systems are reviewed and are negative PMFSH Past Medical History Medical History No pertinent past medical history Surgical History History of tonsillectomy Hx of mastectomy Family History Family History Mother Breast cancer Father CVD (cardiovascular disease) Social History Social History Household Members: Spouse Housing: House Do you presently have visiting nurse or other home services: No Alcohol intake: never Patient Tobacco Use Status: Never used Tobacco Use of substances other than those prescribed or required for medical reasons: No Currently Displaying Signs/Symptoms of Drug Intoxication Withdrawal: No Have you been hit, kicked, punched, or otherwise hurt by someone within the past year? 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 Oriented X3. No acute distress. Eyes: PERRLA, No Nystagmus ENT: Pharynx normal. Oral Mucosa moist normal uvula no stridor Neck: Normal inspection. Neck supple. CVS: Normal heart rate and rhythm. Pulses normal. Respiratory: No respiratory distress. Equal air entry bilateral, no wheezing/rales/rhonchi Abdomen: Soft and nontender. Bowel sounds are present, no mass palpable, no CVA tenderness Skin: Skin warm and dry. Normal skin color. Normal skin turgor. Macular erythematous rash with hives all over the body including the face Extremities: No lower extremity edema. No calf tenderness Neuro: Oriented X 3. Medications Administered Generic Name Dose Route Start Last Admin Trade Name Freq PRN Reason Stop Dose Admin Diphenhydramine HCl 25 mg 11/30/22 13:38 11/30/22 16:17 Diphenhydramine Hcl 50 Mg/Ml Vial IVPUSH 25 mg Q4H PRN Administration allergy Enoxaparin Sodium 40 mg 11/30/22 13:45 11/30/22 14:00 Enoxaparin Sodium 40 Mg/0.4 Ml Syringe SUBCUT 40 mg Q24H JIMY Administration Sodium Chloride 3 ml 11/30/22 16:00 11/30/22 16:19 0.9 % Sodium Chloride Flush 3 Ml Syringe IVFLUSH 3 ml QSHIFT JIMY Administration Discontinued Medications Generic Name Dose Route Start Last Admin Trade Name Saschaq PRN Reason Stop Dose Admin Dexamethasone Sodium Phosphate 10 mg 11/30/22 12:22 11/30/22 12:33 Dexamethasone Sod Phosphate 10 Mg/Ml Vial IVPUSH 11/30/22 12:23 10 mg ONCE ONE Administration Diphenhydramine HCl 50 mg 11/30/22 12:19 11/30/22 12:35 Diphenhydramine Hcl 50 Mg/Ml Vial IVPUSH 11/30/22 12:20 Not Given ONCE ONE Epinephrine 0.3 mg 11/30/22 12:19 11/30/22 12:34 Epinephrine 1 Mg/Ml Vial IM 11/30/22 12:20 0.3 mg STAT STA Administration Famotidine 20 mg 11/30/22 12:19 11/30/22 12:34 Famotidine/Pf 20 Mg/2 Ml Vial IVPUSH 11/30/22 12:20 20 mg ONCE ONE Administration Sodium Chloride 1,000 mls @ 999 mls/hr 11/30/22 12:21 11/30/22 13:37 Ns IV 11/30/22 13:21 Infused .Q1H1M ONE Infusion Medical Decision Making Medical Decision Making [facility] Narrative: Patient with allergic reaction to amoxicillin possible DRESS syndrome but will continue to monitor admit received Epi in the ER along with Pepcid and steroids Consult Healthcare Provider Management of the patient was discussed with: Hospitalist Lab Data MDM Lab Attestation statement: I reviewed the patient's lab results. 11/30/22 12:28 11/30/22 12:28 Labs: Lab Results 11/30/22 11/30/22 Range/Units 12:28 12:28 WBC 26.8 H (4.8-10.8) X10*3/uL RBC 3.98 L (4.20-5.50) X10*6/uL Hgb 12.5 (12.0-16.0) g/dl Hct 36.4 L (37.0-47.0) % MCV 91.5 (80.0-98.0) fL MCH 31.4 (27.0-33.0) pg MCHC 34.3 (31.0-35.0) g/dl RDW 12.7 (11.0-16.0) % Plt Count 268 (160-400) X10*3/uL MPV 9.4 (9.4-12.3) fL Immature Gran % (Auto) 1.8 H (0.0-0.4) % Neut % (Auto) 92.8 H (45-73) % Lymph % (Auto) 1.2 L (20-40) % [place] % (Auto) 1.6 L (2-11) % Eos % (Auto) 2.5 (0-4) % Baso % (Auto) 0.1 (0-2) % Lymph # (Auto) 0.3 L (1.2-4.9) X10*3/uL [place] # (Auto) 0.4 (0.1-1.2) X10*3/uL Eos # (Auto) 0.7 H (0.0-0.4) X10*3/uL Baso # (Auto) 0.0 (0.0-0.2) X10*3/uL Abs Immat Gran (auto) 0.47 H (0.00-0.03) X10*3/uL Absolute Neuts (auto) 24.9 H (2.0-8.3) x10*3/uL Absolute Nucleated RBC 0.000 (0.0-0.012) X10*3/uL Nucleated RBC % (auto) 0.0 (0.0-0.2) /100WBC Smear Tech's Comments VERIFIED Sodium 134 L (135-145) mmol/L Potassium 4.2 (3.3-5.1) mmol/L Chloride 107 (96-108) mmol/L Carbon Dioxide 19 L (22-29) mmol/L Anion Gap 12 (12-20) BUN 17 H (9-16) mg/dL Creatinine 1.04 (0.5-1.4) mg/dL Estim Creat Clear Calc 46.5 Estimated GFR 53 Random Glucose 154 H (60-115) mg/dL Calcium 8.2 L D (8.4-10.2) mg/dL Total Bilirubin 0.4 (0.0-1.0) mg/dL AST 93 H (5-31) U/L ALT 74 H (0-31) U/L Alkaline Phosphatase 63 (39-117) U/L Total Protein 5.6 L (6.5-8.0) g/dL Albumin 3.2 L (3.5-5.0) g/dL Discharge Plan Discharge Clinical Impression: DRESS syndrome Patient Disposition: Admitted As Inpatient Interventions: Admission Worksheet (ED) Last Done: 11/30/22 15:29 Discharge Date/Time: 11/30/22 15:30
[2022-11-30] MEDS: Enoxaparin Sodium 40 MG/0.4 ML SYRINGE SUBCUT (14:00)
[2022-11-30 14:19] LABS: Troponin-I High Sensitivity 16.1 ng/L (<3.5-17.0)
--- NOTE | 2022-11-30 14:22 | PM.IMHP ---
History of Present Illness Date of Service: 11/30/22 Chief Complaint: Rash 67 year old women presenting to the ED with body rash and fever. She was started on Amoxicillin after a dental infection. She completed 7 days of amoxicillin and started with a rash to her body and fever. She visited the ED on 11/29/22 and was given prednisone and benadryl and sent home. She presented back to the ED today woith fever and continued rash. She reported some mild pruritis, along with angioedema of the face and eyes with no respiratory symptoms. She denied recent illness, travel, sick contacts, sob, chest pain. She reported no hx of allergies and has never taken amoxicillin in her life. She was noted to have fever as high as 102.4 in the ED as well as WBC 26.8, neut 92.8, EOS 0.7, ast 93, alt 74. Inthe ED, she was given epi, benadryl, NS, and decadron. She will be placed on obs for DRUG rash. Review of Systems Review of Systems: Denies any recent fever chills or decrease in appetite respiratory denies any shortness of breath coverage production cardiovascular denied chest pain gastrointestinal denies any dysphagia abdominal pain nausea vomiting or diarrhea genitourinary denies any dysuria frequency or hematuria musculoskeletal denies any joint pain or swelling neuropsych denies any weakness or seizures all other systems reviewed are negative Skin reported diffuse flat rash to body and trunk with mild pruritis [facility] Medical History (Updated 11/30/22 @ 14:49 by Karyna Moss NP) No pertinent past medical history Family History Mother Breast cancer Father CVD (cardiovascular disease) Surgical History History of tonsillectomy Hx of mastectomy Social History Alcohol intake: never Advance Directives: Yes Advance Directives Information Provided: Yes Advance Directives on File: No 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al status: employed 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 Meds Allergies Allergy/AdvReac Type Severity Reaction Status Date / Time amoxicillin Allergy Severe Anaphylaxis Verified 11/29/22 15:37 Active Medications: Current Medications Acetaminophen (Acetaminophen 325 Mg Tablet) 650 mg PO Q6H PRN PRN Reason: Pain, Mild (Pain Scale 1-3) Diphenhydramine HCl (Diphenhydramine Hcl 50 Mg/Ml Vial) 25 mg IVPUSH Q4H PRN PRN Reason: allergy Enoxaparin Sodium (Enoxaparin Sodium 40 Mg/0.4 Ml Syringe) 40 mg SUBCUT Q24H [facility] Last Admin: 11/30/22 14:00 Dose: 40 mg Famotidine (Famotidine/Pf 20 Mg/2 Ml Vial) 20 mg IVPUSH BID [facility] Ondansetron HCl (Ondansetron Hcl 4 Mg/2 Ml Vial) 4 mg IVPUSH Q8H PRN PRN Reason: Nausea and Vomiting Prednisone (Prednisone 20 Mg Tablet) 40 mg PO DAILY [facility] Stop: 12/05/22 08:59 Sodium Chloride (0.9 % Sodium Chloride Flush 3 Ml Syringe) 3 ml IVFLUSH QSHIFT [facility] Home Medications Medication Instructions Recorded Confirmed Last Taken Type calcium carbonate 500 mg calcium 500 mg PO DAILY 11/30/22 11/30/22 Unknown History (1,250 mg) tablet chlorhexidine gluconate 0.12 % 15 ml PO BID 11/30/22 11/30/22 11/30/22 History mouthwash ibuprofen 200 mg tablet 400 mg PO Q6H PRN Fever Or Pain 11/30/22 11/30/22 11/30/22 History Physical Exam Vital Signs and Narrative: Vital Signs: Last Vital Signs Temp 99.2 F 11/30/22 11:59 Pulse 80 11/30/22 12:34 Resp 16 11/30/22 11:59 BP 117/70 11/30/22 12:34 Pulse Ox 99 11/30/22 11:59 O2 Del Method Room Air 11/30/22 11:59 BMI result Body Mass Index 21.1 Appearing in no acute distress head is normocephalic atraumatic eyes pupils are PERRLA sclera is anicteric mouth throat mucous membranes are intact and moist neck is supple no lymphadenopathy, no JVD noted lung sounds are clear to auscultation heart regular rate rhythm, clear S1, S2 positive bowel sounds, abdomen is soft, nontender neuro patient is alert x3, no focal deficits flat purpuric rash to body and trunk edema to face and eyes Results Labs 11/30/22 12:28 11/30/22 12:28 Labs: Laboratory Results - last 24 hr 11/30/22 11/30/22 11/30/22 12:28 12:28 13:49 MCV 91.5 MCH 31.4 MCHC 34.3 RDW 12.7 Plt Count 268 MPV 9.4 Immature Gran % (Auto) 1.8 H Neut % (Auto) 92.8 H Lymph % (Auto) 1.2 L [place] % (Auto) 1.6 L Eos % (Auto) 2.5 Baso % (Auto) 0.1 Lymph # (Auto) 0.3 L [place] # (Auto) 0.4 Eos # (Auto) 0.7 H Baso # (Auto) 0.0 Abs Immat Gran (auto) 0.47 H Absolute Neuts (auto) 24.9 H Absolute Nucleated RBC 0.000 Nucleated RBC % (auto) 0.0 Smear Tech's Comments VERIFIED Anion Gap 12 Estim Creat Clear Calc 46.5 Estimated GFR 53 Random Glucose 154 H Calcium 8.2 L D Total Bilirubin 0.4 AST 93 H ALT 74 H Alkaline Phosphatase 63 Troponin I High Sens 16.1 Total Protein 5.6 L Albumin 3.2 L Assessment and Plan (1) Rash and nonspecific skin eruption: Status: Acute Plan 67 year old women admitted with DRESS rash to entire body including face Drug rash (DRESS) symptoms started once amoxicillin completed (7 days) Fever, rash, Eosinophilia, neutrophilia, leukocytosis, transaminitis UA, CXR, blood cx after 24 hrs negative Prednisone 40 mg daily, IV pepcid BID, IV benadryl Q4hrs as needed check HSV, Hep panel, carlyle DVT prophylaxis with Lovenox Attending Dr. Warren OBS Time Spent With Patient Time: Total time managing care of this patient today ____ minutes. Quality Stroke Does the patient have a stroke diagnosis?: No VTE Prior VTE?: No VTE Risk Level:: Medical - moderate - high VTE Device Contraindication: Treatment Not Indicated VTE Drug Contraindication: N/A - Med Ordered
--- NOTE | 2022-11-30 14:34 | PHA.MEDREC ---
Pharmacy Consult ? Medication Reconciliation Pharmacy has completed the medication reconciliation. spoke with patient. She took prednisone, benadryl, ibuprofen, and used the chlorhexidine rinse this morning. She has not used the epipen.
[2022-11-30 15:02] VITALS: BP 110/57; PULSE 85; RESP 14; TEMP 36.7; O2SAT 95
[2022-11-30 15:06] VITALS: BMI 21.1
[2022-11-30] MEDS: diphenhydrAMINE HCL 50 MG/ML VIAL 25 MG IVPUSH ×2 (16:17→21:11)
[2022-11-30] MEDS: 0.9 % Sodium Chloride Flush 3 ML SYRINGE IVFLUSH ×2 (16:19→21:12)
[2022-11-30 19:47] VITALS: BP 113/64; PULSE 85; RESP 18; TEMP 36.1; O2SAT 97
[2022-12-01] VITALS: BP 109/59; PULSE 84; RESP 18; TEMP 37.5; O2SAT 95
[2022-12-01 06:36] LABS: Basophils Absolute Auto 0.1 X10*3/uL (0.0-0.2); Basophils Percent Auto 0.2 % (0-2); Eosinophils Percent Auto 4.2 % (0-4); Hematocrit 32.8 % (37.0-47.0); Hemoglobin 11.1 g/dl (12.0-16.0); Imm Gran Abs Auto 0.35 X10*3/uL (0.00-0.03); Imm Gran Pct Auto 1.4 % (0.0-0.4); Lymphocytes Absolute Auto 0.5 X10*3/uL (1.2-4.9); MANUAL DIFF FLAG SCAN; Mean Corpuscular HGB Conc 33.8 g/dl (31.0-35.0); Mean Corpuscular Hemoglobin 31.2 pg (27.0-33.0); Mean Corpuscular Volume 92.1 fL (80.0-98.0); Mean Platelet Volume 10.3 fL (9.4-12.3); Monocytes Absolute Auto 0.5 X10*3/uL (0.1-1.2); Monocytes Percent Auto 1.9 % (2-11); Neutrophils Absolute Auto 22.2 x10*3/uL (2.0-8.3); Neutrophils Percent Auto 90.3 % (45-73); Platelet Count 266 X10*3/uL (160-400); Red Blood Count 3.56 X10*6/uL (4.20-5.50); Red Cell Distribution Width 12.8 % (11.0-16.0); SCAN SMEAR FLAG 1; White Blood Count 24.5 X10*3/uL (4.8-10.8)
[2022-12-01 07:01] LABS: Alanine Aminotransferase 49 U/L (0-31); Albumin Level 2.9 g/dL (3.5-5.0); Alkaline Phosphatase 50 U/L (39-117); Aspartate Amino Transferase 23 U/L (5-31); Bilirubin Direct 0.1 mg/dL (0.0-0.5); Bilirubin Total 0.3 mg/dL (0.0-1.0); Magnesium 2.1 mg/dL (1.6-2.6); Total Protein 4.9 g/dL (6.5-8.0)
[2022-12-01 07:02] LABS: Anion Gap 11 (12-20); Blood Urea Nitrogen 14 mg/dL (9-16); Calcium 8.1 mg/dL (8.4-10.2); Carbon Dioxide 22 mmol/L (22-29); Chloride 110 mmol/L (96-108); Creatinine Clr Calc Pharmacy 64.5; Estimated Glomerular Filt Rate > 60; Glucose Random 118 mg/dL (60-115); Potassium 3.9 mmol/L (3.3-5.1); Sodium 139 mmol/L (135-145)
[2022-12-01 07:04] LABS: SLIDE REVIEW VERIFIED
[2022-12-01 07:43] VITALS: BP 120/67; PULSE 87; RESP 20; TEMP 37.2; O2SAT 95
[2022-12-01] MEDS: predniSONE 20 MG TABLET 40 MG PO (08:06)
[2022-12-01] MEDS: 0.9 % Sodium Chloride Flush 3 ML SYRINGE IVFLUSH (08:07)
[2022-12-01] MEDS: Famotidine/PF 20 MG/2 ML VIAL IVPUSH (08:07)
[2022-12-01] MEDS: diphenhydrAMINE HCL 50 MG/ML VIAL 25 MG IVPUSH (08:07)
[2022-12-01 09:49] LABS: HBS Num1 2.97 mIU/mL (0-7.99); HBc Num1 0.13 S/CO (0.00-0.79); HBsAGNum1 0.32 S/CO (0.00-0.99); Hepatitis A Antibody IgM 0.14 Index (0-0.79); Hepatitis B Core Antibody Nonreactive (Nonreactive); Hepatitis B Surface Antigen Negative (Negative); ~HepC Num1 0.09 S/CO (0.00-0.79); ~Hepatitis A Antibody IgM Nonreactive (Nonreactive); ~Hepatitis B Surface Antibody NONREACTIVE (Nonreactive); ~Hepatitis C Antibody Nonreactive (Nonreactive)
--- NOTE | 2022-12-01 10:52 | MHC.CM.PN ---
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 PT WOULD LIKE TO D/C SOON POSSIBLE. PT VERIFIES PCP IS MACIEL AVILA X3 AND REPORTS GABRIEL IS HER HCP. ANTIC D/C HOME SELF-CARE W/FAMILY FOR TRANSPORT
--- NOTE | 2022-12-01 11:25 | HO.PM.IMPN ---
Subjective Subjective Date of Service: 12/01/22 Review of Systems Follow up Drug rash doing better today some improvement in facial edema and rash Physical Exam Vital Signs: Vital Signs: Last Vital Signs Temp 99.0 F 12/01/22 07:43 Pulse 87 12/01/22 07:43 Resp 20 12/01/22 07:43 BP 120/67 12/01/22 07:43 Pulse Ox 95 12/01/22 07:43 O2 Del Method Room Air 12/01/22 07:43 BMI result Body Mass Index 21.1 Appearing in no acute distress lung sounds are clear to auscultation heart regular rate rhythm, clear S1, S2 positive bowel sounds, abdomen is soft, nontender neuro patient is alert x3, no focal deficits purpuric rash to body and trunk mild facial jen Objective Data Active Medications Acetaminophen (Acetaminophen 325 Mg Tablet) 650 mg PO Q6H PRN PRN Reason: Pain, Mild (Pain Scale 1-3) Diphenhydramine HCl (Diphenhydramine Hcl 50 Mg/Ml Vial) 25 mg IVPUSH Q4H PRN PRN Reason: allergy Last Admin: 12/01/22 08:07 Dose: 25 mg Documented By: MARY Enoxaparin Sodium (Enoxaparin Sodium 40 Mg/0.4 Ml Syringe) 40 mg SUBCUT Q24H [facility] Last Admin: 11/30/22 14:00 Dose: 40 mg Documented By: JODI Famotidine (Famotidine/Pf 20 Mg/2 Ml Vial) 20 mg IVPUSH BID [facility] Last Admin: 12/01/22 08:07 Dose: 20 mg Documented By: MARY Ondansetron HCl (Ondansetron Hcl 4 Mg/2 Ml Vial) 4 mg IVPUSH Q8H PRN PRN Reason: Nausea and Vomiting Prednisone (Prednisone 20 Mg Tablet) 40 mg PO DAILY [facility] Stop: 12/05/22 08:59 Last Admin: 12/01/22 08:06 Dose: 40 mg Documented By: MARY Sodium Chloride (0.9 % Sodium Chloride Flush 3 Ml Syringe) 3 ml IVFLUSH QSHIFT [facility] Last Admin: 12/01/22 08:07 Dose: 3 ml Documented By: MARY Labs 12/01/22 06:02 12/01/22 06:02 Labs: Laboratory Results - last 24 hr 05/28/23 05/28/23 05/28/23 12:28 12:28 12:28 MCV 91.5 MCH 31.4 MCHC 34.3 RDW 12.7 Plt Count 268 MPV 9.4 Immature Gran % (Auto) 1.8 H Neut % (Auto) 92.8 H Lymph % (Auto) 1.2 L [place] % (Auto) 1.6 L Eos % (Auto) 2.5 Baso % (Auto) 0.1 Lymph # (Auto) 0.3 L [place] # (Auto) 0.4 Eos # (Auto) 0.7 H Baso # (Auto) 0.0 Abs Immat Gran (auto) 0.47 H Absolute Neuts (auto) 24.9 H Absolute Nucleated RBC 0.000 Nucleated RBC % (auto) 0.0 Smear Tech's Comments VERIFIED Anion Gap 12 Estim Creat Clear Calc 46.5 Estimated GFR 53 Random Glucose 154 H Calcium 8.2 L D Magnesium Total Bilirubin 0.4 Direct Bilirubin AST 93 H ALT 74 H Alkaline Phosphatase 63 Troponin I High Sens Total Protein 5.6 L Albumin 3.2 L Hepatitis A IgM Ab Nonreactive Hep Bs Antigen Negative Hep Bs Antibody NONREACTIVE Hep B Core Total Ab Nonreactive Hepatitis C Ab (EIA) Nonreactive 11/30/22 12/01/22 12/01/22 13:49 06:02 06:02 MCV 92.1 MCH 31.2 MCHC 33.8 RDW 12.8 Plt Count 266 MPV 10.3 Immature Gran % (Auto) 1.4 H Neut % (Auto) 90.3 H Lymph % (Auto) 2.0 L [place] % (Auto) 1.9 L Eos % (Auto) 4.2 H Baso % (Auto) 0.2 Lymph # (Auto) 0.5 L [place] # (Auto) 0.5 Eos # (Auto) 1.0 H Baso # (Auto) 0.1 Abs Immat Gran (auto) 0.35 H Absolute Neuts (auto) 22.2 H Absolute Nucleated RBC 0.000 Nucleated RBC % (auto) 0.0 Smear Tech's Comments VERIFIED Anion Gap 11 L Estim Creat Clear Calc 64.5 Estimated GFR > 60 Random Glucose 118 H Calcium 8.1 L Magnesium Total Bilirubin Direct Bilirubin AST ALT Alkaline Phosphatase Troponin I High Sens 16.1 Total Protein Albumin Hepatitis A IgM Ab Hep Bs Antigen Hep Bs Antibody Hep B Core Total Ab Hepatitis C Ab (EIA) 12/01/22 06:02 MCV MCH MCHC RDW Plt Count MPV Immature Gran % (Auto) Neut % (Auto) Lymph % (Auto) [place] % (Auto) Eos % (Auto) Baso % (Auto) Lymph # (Auto) [place] # (Auto) Eos # (Auto) Baso # (Auto) Abs Immat Gran (auto) Absolute Neuts (auto) Absolute Nucleated RBC Nucleated RBC % (auto) Smear Tech's Comments Anion Gap Estim Creat Clear Calc Estimated GFR Random Glucose Calcium Magnesium 2.1 Total Bilirubin 0.3 Direct Bilirubin 0.1 AST 23 ALT 49 H Alkaline Phosphatase 50 Troponin I High Sens Total Protein 4.9 L Albumin 2.9 L Hepatitis A IgM Ab Hep Bs Antigen Hep Bs Antibody Hep B Core Total Ab Hepatitis C Ab (EIA) Assessment and Plan Plan 67 year old women admitted with DRESS rash to entire body including face Drug rash (DRESS) symptoms started once amoxicillin completed (7 days) Fever, rash, Eosinophilia, neutrophilia, leukocytosis, transaminitis UA, CXR, blood cx after 24 hrs negative Prednisone 40 mg daily, IV pepcid BID, IV benadryl Q4hrs as needed check HSV, Hep panel, carlyle GPC 1/2 blood cx no fever will hold off on abx likely contaminant DVT prophylaxis with Lovenox Attending Dr. Warren OBS Time Spent With Patient Time: Total time managing care of this patient today ____ minutes. Quality Stroke Does the patient have a stroke diagnosis?: No VTE Prior VTE?: No VTE Risk Level:: Medical - moderate - high VTE Device Contraindication: Treatment Not Indicated VTE Drug Contraindication: N/A - Med Ordered
--- NOTE | 2022-12-01 11:57 | P.DS_ITS ---
DS: Providers Provider Date of Service: 12/01/22 Date of admission: 11/30/22 13:31 Primary care physician: Alexis Rincon MD DS: Diagnosis Discharge Diagnosis (1) Rash and nonspecific skin eruption: Status: Acute DS: Summary Hospital Course Hospital Course: HP as per admitting provider 67 year old women presenting to the ED with body rash and fever. She was started on Amoxicillin after a dental infection. She completed 7 days of amoxicillin and started with a rash to her body and fever. She visited the ED on 11/29/22 and was given prednisone and benadryl and sent home.? She presented back to the ED today woith fever and continued rash. She reported some mild pruritis, along with angioedema of the face and eyes with no respiratory symptoms. She denied recent illness, travel, sick contacts, sob, chest pain. She reported no hx of allergies and has never taken amoxicillin in her life. She was noted to have fever as high as 102.4 in the ED as well as WBC 26.8, neut 92.8, EOS 0.7,? ast 93, alt 74. Inthe ED, she was given epi, benadryl, NS, and decadron. She will be placed on obs for DRUG rash . Drug rash (DRESS) symptoms started once amoxicillin completed (7 days) Fever, rash, Eosinophilia, neutrophilia, leukocytosis, transaminitis, all improved UA, CXR negative 1/2 GPC, likely contaminant Treated with Prednisone 40 mg daily, IV pepcid BID, IV benadryl Q4hrs as needed HSV, Hep panel, carlyle pending, follow up o/p 10 day prednisone taper and benadryl as needed. GPC 1/2 blood cx no fever will hold off on abx likely contaminant, Patient ok to return home, will return if blood cx come back positive for bacteremia Time Spent with Patient Time attestation: Total time managing care of this patient today ____ minutes. Discharge coordination time: Greater than 30 minutes Quality: Safe Use of Opioids Does Pt have an Active Cancer Diagnosis on the Problem List?: No Quality: Stroke Does the patient have a stroke diagnosis?: No Physical Exam Vital Signs: Vital Signs: Last Vital Signs Temp 99.0 F 12/01/22 07:43 Pulse 87 12/01/22 07:43 Resp 20 12/01/22 07:43 BP 120/67 12/01/22 07:43 Pulse Ox 95 12/01/22 07:43 O2 Del Method Room Air 12/01/22 07:43 BMI result Body Mass Index 21.1 Appearing in no acute distress head is normocephalic atraumatic eyes pupils are PERRLA sclera is anicteric mouth throat mucous membranes are intact and moist neck is supple no lymphadenopathy, no JVD noted lung sounds are clear to auscultation heart regular rate rhythm, clear S1, S2 positive bowel sounds, abdomen is soft, nontender neuro patient is alert x3, no focal deficits Purpuric rash to body and trunk angioedema improved to face DS: Data Data Completed and Pending Labs on day of discharge: Laboratory Results - last 24 hr 11/30/22 11/30/22 11/30/22 12:28 12:28 12:28 WBC 26.8 H RBC 3.98 L Hgb 12.5 Hct 36.4 L MCV 91.5 MCH 31.4 MCHC 34.3 RDW 12.7 Plt Count 268 MPV 9.4 Immature Gran % (Auto) 1.8 H Neut % (Auto) 92.8 H Lymph % (Auto) 1.2 L [place] % (Auto) 1.6 L Eos % (Auto) 2.5 Baso % (Auto) 0.1 Lymph # (Auto) 0.3 L [place] # (Auto) 0.4 Eos # (Auto) 0.7 H Baso # (Auto) 0.0 Abs Immat Gran (auto) 0.47 H Absolute Neuts (auto) 24.9 H Absolute Nucleated RBC 0.000 Nucleated RBC % (auto) 0.0 Smear Tech's Comments VERIFIED Sodium 134 L Potassium 4.2 Chloride 107 Carbon Dioxide 19 L Anion Gap 12 BUN 17 H Creatinine 1.04 Estim Creat Clear Calc 46.5 Estimated GFR 53 Random Glucose 154 H Calcium 8.2 L D Magnesium Total Bilirubin 0.4 Direct Bilirubin AST 93 H ALT 74 H Alkaline Phosphatase 63 Troponin I High Sens Total Protein 5.6 L Albumin 3.2 L Hepatitis A IgM Ab Nonreactive Hep Bs Antigen Negative Hep Bs Antibody NONREACTIVE Hep B Core Total Ab Nonreactive Hepatitis C Ab (EIA) Nonreactive 11/30/22 12/01/22 12/01/22 13:49 06:02 06:02 WBC 24.5 H RBC 3.56 L Hgb 11.1 L Hct 32.8 L MCV 92.1 MCH 31.2 MCHC 33.8 RDW 12.8 Plt Count 266 MPV 10.3 Immature Gran % (Auto) 1.4 H Neut % (Auto) 90.3 H Lymph % (Auto) 2.0 L [place] % (Auto) 1.9 L Eos % (Auto) 4.2 H Baso % (Auto) 0.2 Lymph # (Auto) 0.5 L [place] # (Auto) 0.5 Eos # (Auto) 1.0 H Baso # (Auto) 0.1 Abs Immat Gran (auto) 0.35 H Absolute Neuts (auto) 22.2 H Absolute Nucleated RBC 0.000 Nucleated RBC % (auto) 0.0 Smear Tech's Comments VERIFIED Sodium 139 Potassium 3.9 Chloride 110 H Carbon Dioxide 22 Anion Gap 11 L BUN 14 Creatinine 0.75 Estim Creat Clear Calc 64.5 Estimated GFR > 60 Random Glucose 118 H Calcium 8.1 L Magnesium Total Bilirubin Direct Bilirubin AST ALT Alkaline Phosphatase Troponin I High Sens 16.1 Total Protein Albumin Hepatitis A IgM Ab Hep Bs Antigen Hep Bs Antibody Hep B Core Total Ab Hepatitis C Ab (EIA) 12/01/22 06:02 WBC RBC Hgb Hct MCV MCH MCHC RDW Plt Count MPV Immature Gran % (Auto) Neut % (Auto) Lymph % (Auto) [place] % (Auto) Eos % (Auto) Baso % (Auto) Lymph # (Auto) [place] # (Auto) Eos # (Auto) Baso # (Auto) Abs Immat Gran (auto) Absolute Neuts (auto) Absolute Nucleated RBC Nucleated RBC % (auto) Smear Tech's Comments Sodium Potassium Chloride Carbon Dioxide Anion Gap BUN Creatinine Estim Creat Clear Calc Estimated GFR Random Glucose Calcium Magnesium 2.1 Total Bilirubin 0.3 Direct Bilirubin 0.1 AST 23 ALT 49 H Alkaline Phosphatase 50 Troponin I High Sens Total Protein 4.9 L Albumin 2.9 L Hepatitis A IgM Ab Hep Bs Antigen Hep Bs Antibody Hep B Core Total Ab Hepatitis C Ab (EIA) Discharge Plan Discharge Anticipated Discharge Date/Time: 12/01/22 12:01 Patient Disposition: Home, Self-Care Discharge Diagnosis: Drug rash Referrals: Alexis Rincon MD [Primary Care Provider] - 1 Week Discharge Medications: New prednisone 10 mg tablet See Taper PO DIRECTED Qty: 20 0RF Taper: Prednisone 40 mg daily for 2 Days and 0 Hour 30 mg daily for 2 Days and 0 Hour 20 mg daily for 2 Days and 0 Hour 10 mg daily for 2 Days and 0 Hour Rx Instructions: see taper instructions Continued diphenhydramine HCl [Benadryl] 25 mg capsule 50 mg PO Q6-8H PRN (Reason: allergic reaction) Qty: 30 0RF epinephrine [EpiPen] 0.3 mg/0.3 mL auto-injector 0.3 mg IM Q4H PRN (Reason: anaphylaxis) Qty: 2 0RF ibuprofen 200 mg Tablet 400 mg PO Q6H PRN (Reason: Fever Or Pain) chlorhexidine gluconate 0.12 % mouthwash 15 ml PO BID Rx Instructions: rinse for 30 seconds and spit in the morning and evening after brushing calcium carbonate 500 mg calcium (1,250 mg) Tablet 500 mg PO DAILY Discontinued prednisone 20 mg tablet 40 mg PO DAILY Qty: 10 0RF Discharge Orders: Discharge Order (Routine); Ordered 12/01/22 Ordered By: Karyna Moss Diet: Advance to usual diet Activity on Discharge: As tolerated Stand Alone Forms: Patient Portal Discharge page, Work/School Release Care Plan Goals: Rash should improve over the next days to weeks, if still no improvement consider follow up with dermatology Health Concerns: Drug rash Plan of Treatment: Follow up with primacry care provider as needed Take all medications as prescribed Assessment: see discharge summary
[2022-12-02 19:05] LABS: Herpes Simplex Type 2 IgG <0.90 index
[2022-12-08 13:23] LABS: Anti Nuclear Antibody Pattern Nuclear, Speckled; Anti Nuclear Antibody Screen POSITIVE (NEGATIVE)
[2022-12-09 08:34] LABS: ANA Pattern 3 TN
== END 2022-12-01 13:22 | disposition home or self-care (01) ==
LOC: HO.ED 13:37 → HO.EDOVER 13:38 → HO.IMC 14:21
PROVIDERS: Admitting Provider Nurse Practitioner Acute Care; Emergency Provider Internal Medicine; PCP Internal Medicine; Visit Provider Nurse Practitioner Acute Care
DX: D72.12 Drug rash with eosinophilia and systemic symptoms syndrome (principal); T36.0X5A Adverse effect of penicillins, initial encounter; H10.419 Chronic giant papillary conjunctivitis, unspecified eye; R50.9 Fever, unspecified
CPT/HCPCS: 36415; 80048; 80053; 80076; 83735; 84484; 85025; 86038; 86039; 86695; 86696; 86704; 86706; 86709; 86803; 87340; 96361; 96372; 96374; 96375; 96376; 99222; 99285; J0171; J1100; J1200; J1650

== ENCOUNTER 2022-12-26 07:01 | Outpatient (REF) | payer OTHER, SELFPAY ==
[2022-12-26 07:09] LABS: MANUAL DIFF FLAG NO
[2022-12-26 07:30] LABS: Basophils Absolute Auto 0.1 X10*3/uL (0.0-0.2); Basophils Percent Auto 1.1 % (0-2); Eosinophils Absolute Auto 0.7 X10*3/uL (0.0-0.4); Hematocrit 38.8 % (37.0-47.0); Hemoglobin 12.6 g/dl (12.0-16.0); Imm Gran Abs Auto 0.02 X10*3/uL (0.00-0.03); Imm Gran Pct Auto 0.3 % (0.0-0.4); Lymphocytes Absolute Auto 1.5 X10*3/uL (1.2-4.9); Lymphocytes Percent Auto 23.9 % (20-40); Mean Corpuscular HGB Conc 32.5 g/dl (31.0-35.0); Mean Corpuscular Hemoglobin 31.2 pg (27.0-33.0); Mean Platelet Volume 9.4 fL (9.4-12.3); Monocytes Absolute Auto 0.7 X10*3/uL (0.1-1.2); Monocytes Percent Auto 11.5 % (2-11); Neutrophils Absolute Auto 3.3 x10*3/uL (2.0-8.3); Neutrophils Percent Auto 52.2 % (45-73); Platelet Count 301 X10*3/uL (160-400); Red Blood Count 4.04 X10*6/uL (4.20-5.50); Red Cell Distribution Width 14.2 % (11.0-16.0); White Blood Count 6.3 X10*3/uL (4.8-10.8)
== END 2022-12-26 07:02 | disposition home or self-care (01) ==
LOC: HO.LAB 07:01
PROVIDERS: PCP Internal Medicine; Visit Provider Internal Medicine
DX: D72.829 Elevated white blood cell count, unspecified (principal)
CPT/HCPCS: 36415; 85025

== ENCOUNTER 2023-06-23 13:53 | Outpatient (REF) | payer OTHER, SELFPAY ==
--- NOTE | ~2023-06-23 | MM_ITS ---
EXAMINATION: MM SCREENING DIGITAL BREAST TOMOSYNTHESIS, LEFT CLINICAL INFORMATION: Screening. Asymptomatic. The patient is status post right mastectomy. COMPARISON: Mammography: This study is compared with prior exams dating back to 2018. TECHNIQUE: Digital breast tomosynthesis is performed in both the craniocaudal and mediolateral oblique views along with computer-aided detection (CAD). Synthesized 2D images are generated from the tomosynthesis. FINDINGS: There are scattered areas of fibroglandular density (ACR BI-RADS breast composition Category b). There are no significant masses, abnormal calcifications, or other abnormalities. MM/MM tomosynthesis screening LT IMPRESSION: No mammographic evidence of malignancy. ASSESSMENT: BI-RADS BI-RADS 1 - Negative RECOMMENDATION: Routine annual mammography screening. 1 year F/U This examination should not preclude the clinical evaluation of a suspicious palpable abnormality. This patient's information was entered into a reminder system with a target due date for their next mammogram.
== END 2023-06-23 13:54 | disposition home or self-care (01) ==
LOC: HO.MAMMO 13:53
PROVIDERS: Visit Provider Internal Medicine
DX: Z12.31 Encounter for screening mammogram for malignant neoplasm of breast (principal)
CPT/HCPCS: 77063; 77067

== ENCOUNTER → 2023-06-23 14:00 | Outpatient (BNV) | payer OTHER, SELFPAY | PROVIDERS: Visit Provider Radiology Diagnostic Radiology | DX: Z12.31 Encounter for screening mammogram for malignant neoplasm of breast (principal) | CPT/HCPCS: 77063; 77067 ==

== ENCOUNTER 2023-07-15 13:44 | Outpatient (AMB) | payer OTHER, SELFPAY ==
--- NOTE | 2023-07-15 13:52 | A.OFFVIS_ITS ---
Intake Vital Signs 07/15/23 13:53 Height 5 ft 4 in Weight 146 lb 9.718 oz BMI 25.2 BP 126/76 Blood Pressure Location Lt brachial Position Sitting Pulse 81 Pulse Source Pulse Oximeter Intake Visit Reasons: Osteoporosis-CONFIRMED Intake Note: Patient present today for Osteoporosis follow up visit. Director Business Integration Required: No Accompanied by: Self / Same As Patient Allergies amoxicillin Allergy (Severe, Verified 07/15/23 13:58) Anaphylaxis HPI HPI Comments History of Present Illness Details 68 YO Female with seen in consultation at the request of PCP for Osteoporosis. First diagnosed in 2021 . Not Received treatment in the past No history of pathologic fracture or ONJ. Has 4 servings of dietary calcium per day in the form of cheese. Takes Calcium supplement 500 mg daily in divided doses. Takes ? IU of Vitamin D daily. Denies ever using PPI, anticoagulant, antiepileptic or glucocorticoid medication. 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 UTD on dental cleanings and sees dentist every 6 months. No planned upcoming dental work or extractions. DXA dated 08/01/2021:FINDINGS: AP SPINE L1-L4: BMD 1.246 g/cm2, Z-score 2.1, T-score 0.6, normal. LEFT FEMUR, NECK: BMD 0.651 g/cm2, Z-score -1.3, T-score -2.8, osteoporosis. LEFT FEMUR, TOTAL: BMD 0.756 g/cm2, Z-score -0.8, T-score -2.0, osteopenia. IDENTIFIED RISK FACTORS: Rheumatoid arthritis, menopause. HISTORY OF FRACTURE: None listed. MEDICATIONS: Multivitamin. Prior history of breast cancer and treatment with tamoxifen for 5 years Labs: [facility] Medical History (Updated 07/15/23 @ 14:33 by Onel Reid MD) Osteoporosis No pertinent past medical history Surgical History Hx of mastectomy History of tonsillectomy Family History Mother Breast cancer Father CVD (cardiovascular disease) Social History Household Members: Spouse Housing: House Do you presently have visiting nurse or other home services: No Alcohol intake: never Patient Tobacco Use Status: Never used Tobacco Advance Directives Date on File: 11/30/22 service: No 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al status: employed 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 Absence of blue sclera. Absence of kyphosis. Thyroid gland is of nl size and weighs 15 gms. There are no thyroid nodules palpated. Lungs CTA. Heart S1 S2 Reg R/R Abdominal exam benign. Muscle strength 5/5 . Examination of spine reveals absence of tenderness on palpation Assessment & Plan Assessment & Plan (1) Osteoporosis: Code(s): M81.0 - Age-related osteoporosis without current pathological fracture Plan: This is a 68-year-old white female with a history of osteoporosis. Rule out secondary causes. The plan is to complete the secondary workup by checking 25 hydroxy vitamin-D, 24 hour urine for calcium and creatinine, SPEP, urine immunofixation, phosphorus level. assuming the above is negative, we will ensure 1200 mg of calcium and 2000 units of vitamin D3. Could consider either observation or anti resorptive therapy with either Evista oral or intravenous bisphosphonate or Prolia considering the prior history of breast cancer. Could consider also repeating the DEXA bone density with TBS to determine if pharmacologic treatment is necessary Orders: Orders Vitamin D 25-OH Total Today M81.0 - Age-related osteoporosis without current pathological fracture Protein Electrophoresis, Serum Today M81.0 - Age-related osteoporosis without current pathological fracture Immunofixation, Random Urine Today M81.0 - Age-related osteoporosis without current pathological fracture Phosphorus Today M81.0 - Age-related osteoporosis without current pathological fracture Creatinine, 24 Hr Group Today M81.0 - Age-related osteoporosis without current pathological fracture Calcium, 24 Hr Ur Today M81.0 - Age-related osteoporosis without current pathological fracture Coding Level of Care Code New Pt Level 4 (07512) Diagnoses Osteoporosis M81.0
[2023-07-15 13:53] VITALS: BP 126/76; PULSE 81; BMI 25.2
== END 2023-07-15 15:10 | disposition home or self-care (01) ==
PROVIDERS: PCP Internal Medicine; Visit Provider Internal Medicine Endocrinology, Diabetes & Metabolism
DX: M81.0 Age-related osteoporosis without current pathological fracture (principal)
CPT/HCPCS: 99204

== ENCOUNTER → 2023-07-15 13:44 | Outpatient (BNVA) | payer OTHER, SELFPAY | PROVIDERS: PCP Internal Medicine; Visit Provider Internal Medicine Endocrinology, Diabetes & Metabolism ==

== ENCOUNTER 2023-11-27 06:49 | Outpatient (REF) | payer OTHER, SELFPAY ==
[2023-11-27 08:14] LABS: Parathyroid Hormone Intact 60.3 pg/mL (8.7-77.1)
[2023-11-27 08:15] LABS: Alanine Aminotransferase 11 U/L (0-31); Albumin Level 4.3 g/dL (3.5-5.0); Alkaline Phosphatase 81 U/L (39-117); Anion Gap 14 (12-20); Aspartate Amino Transferase 21 U/L (5-31); Bilirubin Total 0.5 mg/dL (0.0-1.0); Blood Urea Nitrogen 15 mg/dL (9-16); Calcium 9.8 mg/dL (8.4-10.2); Carbon Dioxide 25 mmol/L (22-29); Chloride 106 mmol/L (96-108); Estimated Glomerular Filt Rate > 60; Glucose Random 107 mg/dL (60-115); Potassium 4.5 mmol/L (3.3-5.1); Sodium 140 mmol/L (135-145); Total Protein 7.2 g/dL (6.5-8.0)
[2023-11-27 08:35] LABS: Free T4 (Free Thyroxine) 0.92 ng/dL (0.71-1.85); Thyroid Stimulating Hormone 1.23 uIU/mL (0.32-4.0); Vitamin D 25-OH Total 75.5 ng/mL (>30)
[2023-11-29 13:35] LABS: Calcium, Ionized 5.4 mg/dL (4.7-5.5)
[2023-12-01 02:44] LABS: Alkaline Phosphatase Bone 12.7 mcg/L (5.6-29.0)
[2023-12-01 22:38] LABS: Prot Elec - Albumin 4.4 g/dL (3.8-4.8); Prot Elec - Alpha1 0.3 g/dL (0.2-0.3); Prot Elec - Alpha2 0.7 g/dL (0.5-0.9); Prot Elec - Beta 1 0.5 g/dL (0.4-0.6); Prot Elec - Beta 2 0.4 g/dL (0.2-0.5); Prot Elec - Gamma 0.8 g/dL (0.8-1.7); Prot Elec - Total Protein 7.1 g/dL (6.1-8.1)
== END 2023-11-27 06:50 | disposition home or self-care (01) ==
LOC: HO.LAB 06:49
PROVIDERS: PCP Internal Medicine; Visit Provider Internal Medicine
DX: M81.0 Age-related osteoporosis without current pathological fracture (principal); E55.9 Vitamin D deficiency, unspecified
CPT/HCPCS: 36415; 80053; 82306; 82330; 83970; 84075; 84165; 84439; 84443

== ENCOUNTER 2023-12-15 08:28 | Outpatient (REF) | payer OTHER, SELFPAY ==
[2023-12-15 09:53] LABS: Creatinine, mg/dL 28.16
[2023-12-15 12:55] LABS: Creatinine, 24Hr Urine 0.4 G/Day (1.0-2.0); Total Volume 24 Hour Urine 1575 mL
[2023-12-17 18:54] LABS: Calcium, 24 Hr Urine 66 mg/24 h; Calcium/Creatinine Ratio 135 mg/g creat (30-275); Creatinine 24Hr Urine 0.49 g/24 h (0.50-2.15)
[2023-12-23 08:58] LABS: N-Telopeptide 21 (see note); NTXCreaRU 74 mg/dL (20-275)
== END 2023-12-15 08:29 | disposition home or self-care (01) ==
LOC: HO.LNP 08:28
PROVIDERS: Visit Provider Internal Medicine
DX: M81.0 Age-related osteoporosis without current pathological fracture (principal); E55.9 Vitamin D deficiency, unspecified
CPT/HCPCS: 82340; 82523; 82570

== ENCOUNTER 2024-03-15 13:58 | Outpatient (REF) | payer OTHER, SELFPAY ==
--- NOTE | ~2024-03-15 | MM_ITS ---
EXAMINATION: BONE DENSITOMETRY CLINICAL INDICATION: Age-related osteoporosis. COMPARISON: Baseline BD dated 08/01/2021. TECHNIQUE: Using a [employer] DXA System (software version: 13.1) manufactured by [employer], dual-energy x-ray absorptiometry was performed of the lumbar spine and left hip. The images are of good technical quality. Summary results are attached. FINDINGS: LEFT FEMUR, NECK: Current: BMD 0.917 g/cm2, Z-score 0.7, T-score -0.9, normal. Baseline: BMD 0.651 g/cm2. LEFT FEMUR, TOTAL: Current: BMD 1.033 g/cm2, Z-score 1.5, T-score 0.2, normal, 36.6% increase from baseline (<5% change is not significant). Baseline: BMD 0.756 g/cm2. AP SPINE L1-L4: Current: BMD 1.234 g/cm2, Z-score 2.1, T-score 0.4, normal, 1.0% decrease from baseline (<5% change is not significant). Baseline: BMD 1.246 g/cm2. IDENTIFIED RISK FACTORS: Menopause, osteoporosis, rheumatoid arthritis. HISTORY OF FRACTURE: None listed. MEDICATIONS: Calcium, vitamin D. MM/XR DEXA axial skeleton IMPRESSION: 1. DIAGNOSIS: Normal bone density based on the lowest T-score value of -0.9 in the femoral neck applying World Health Organization criteria. 2. 10-YEAR FRACTURE RISK PREDICTION, FRAX: According to the guidelines, FRAX calculation should only be performed on patients in the osteopenia bone density category. Therefore, FRAX was not performed on this patient. 3. Treatment Recommendations: NOF guidelines recommend consideration for treatment in postmenopausal women and men age 50 and older presenting with the following: -A hip or vertebral (clinical or morphometric) fracture. -T-score less than or equal to -2.5 at the femoral neck or spine after appropriate evaluation to exclude secondary causes. -Low bone mass at the hip or spine and a 10-year fracture probability by FRAX of greater than or equal to 3% for hip fracture or greater than or equal to 20% for major osteoporotic fracture based on the [place] adapted WHO algorithm. 4. Other Recommendations: All treatment decisions require clinical judgment and consideration of individual patient factors, including patient preferences, comorbidities, previous drug use, risk factors not captured in the FRAX model (e.g. frailty, falls, vitamin D deficiency, increased bone turnover, interval significant decline in bone density) and possible under or overestimation of fracture risk by FRAX. FUTURE SCAN RECOMMENDATION: People with diagnosed cases of osteoporosis or at high risk for fracture should have regular bone mineral density tests. For patients eligible for Medicare, routine testing is allowed once every 2 years. The testing frequency can be increased to one year for patients who have rapidly progressing disease, those who are receiving or discontinuing medical therapy to restore bone mass, or have additional risk factors. Electronically signed by: Lit Dotson MD 03/29/2024 01:01 PM EDT
== END 2024-03-15 13:59 | disposition home or self-care (01) ==
LOC: HO.MAMMO 13:58
PROVIDERS: PCP Internal Medicine; Visit Provider Internal Medicine
DX: M81.0 Age-related osteoporosis without current pathological fracture (principal)
CPT/HCPCS: 77080

== ENCOUNTER 2024-03-29 07:17 | Outpatient (REF) | payer OTHER, SELFPAY ==
[2024-03-29 08:31] LABS: Creatinine, mg/dL 45.25
[2024-03-29 11:09] LABS: Total Volume 24 Hour Urine 2100 mL
[2024-03-30 19:48] LABS: Calcium, 24 Hr Urine 86 mg/24 h; Calcium/Creatinine Ratio 85 mg/g creat (30-275); Creatinine 24Hr Urine 1.01 g/24 h (0.50-2.15)
== END 2024-03-29 07:18 | disposition home or self-care (01) ==
LOC: HO.LNP 07:17
PROVIDERS: Visit Provider Internal Medicine
DX: M81.0 Age-related osteoporosis without current pathological fracture (principal)
CPT/HCPCS: 82340; 82570

== ENCOUNTER 2024-07-07 07:18 | Outpatient (REF) | payer OTHER, SELFPAY | END 2024-07-07 07:19 | disposition home or self-care (01) | LOC: HO.MAMMO 07:18 | PROVIDERS: PCP Internal Medicine; Visit Provider Obstetrics & Gynecology | DX: Z12.31 Encounter for screening mammogram for malignant neoplasm of breast (principal) | CPT/HCPCS: 77063; 77067 ==

== ENCOUNTER → 2024-07-07 07:30 | Outpatient (BNV) | payer OTHER, SELFPAY | PROVIDERS: PCP Internal Medicine; Visit Provider Internal Medicine | DX: Z12.31 Encounter for screening mammogram for malignant neoplasm of breast (principal) | CPT/HCPCS: 77063; 77067 ==

== ENCOUNTER 2024-10-31 09:47 | Outpatient (REF) | payer OTHER, SELFPAY ==
--- NOTE | ~2024-10-31 | US_ITS ---
EXAMINATION: US TRIPLEX LOWER EXTREMITY, LEFT CLINICAL INFORMATION: Pain behind the left leg. Rule out DVT. COMPARISON: None available. TECHNIQUE: Color-flow triplex imaging with spectral analysis and compression Doppler were performed on the left lower extremity. FINDINGS: Respiratory variation, normal compression and augmented flow are noted throughout the left lower extremity. The visualized common femoral vein, superficial femoral vein, profunda femoral vein, popliteal vein and midcalf peroneal and posterior tibial venous segments show no evidence of deep venous thrombosis. There is no Enriquez's cyst. US/US venous duplex LE LT IMPRESSION: No evidence of deep venous thrombosis involving the left lower extremity. Electronically signed by: Nick Hussein MD 10/31/2024 10:42 AM EDT
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
--- OUTSIDE RECORDS SUMMARY | 2024-10-31 11:06 | XMS_ITS | Patient Health Record ---
Author Organization [employer] [facility] Address [address] [address] Care Team Providers Care Cash Register Balancer Name Role Phone Alexis Rincon MD Primary Care Provider Unavaila KEVIN Bravo Unavailable [phone] Allergies Allergen (clinical drug ingredient) Drug/Non Drug Allergy documented on EMR Reaction Allergy Type Onset Date Status amoxicillin Amoxicillin hives/welts Drug Allergy A ctive Reason For Referral No Information Social History Tobacco Use: Social History Observation [...] Never (0 point) Points 4 Interpretation Positive Problems Problem Type SNOMED Code ICD Code Onset Dates Problem Status W/U Status Risk Notes Problem Malignant neoplasm of female breast (713831823) Malignant neoplasm of unspecified site of right female breast (C50.911) Active confirmed Vital Signs Heart Rate 78 /min 05/17/2024 Temperature 97.3 degrees Fahrenheit 05/17/2024 Blood pressure diastolic 80 mm Hg 05/17/2024 Height 64 in 05/17/2024 Blood pressure systolic 122 mm Hg 05/17/2024 Weight 145 lbs 05/17/2024 BMI 24.89 kg/m2 05/17/2024 Encounters Encounter Location Date Provider Diagnosis [facility] [address] [place] [address] 05/17/2024 KEVIN HICKS Encounter for gynecological examination [...] breast (ICD-10 - Z12.31) Plan Of Treatment Pending Test Test Name Order Date MM Digital Screening Mammogram 3D 2020 MM Digital Screening Mammogram 3D 2021 MM Digital Screening Mammogram 3D 2022 MM Digital Screening Mammogram 3D 2023 Next Appt Details Provider Name:KEVIN Oropeza, 05/22/2025 03:00:00 PM, [address], [address], [place], [address], Insurance Providers Payer Name Payer Address Payer Phone Subscriber Number Group Number Insured Name Patient Relationship to Insured Coverage Start Date Coverage End Date [employer] [address] [address] [place] [address] [id number] CAROLINE SIMMONS Self - patient is the insured Medical (General) History Medical History History ICD Code Malignant neoplasm of unspecified site o f right female breast C50.911 COVID-19 U07.1 Surgical History Surgery Date(Month/Year) Right mastectomy with a silicone implant 2013 DxC miscarriage 1987 left leg vein treatment 02/2021 Hospitalization History Reason Date(Month/Year) Severe allergic reaction to amoxicillin 11/2022 See surgical history
== END 2024-10-31 09:48 | disposition home or self-care (01) ==
LOC: HO.US 09:47
PROVIDERS: Visit Provider Surgery Vascular Surgery
DX: M79.605 Pain in left leg (principal)
CPT/HCPCS: 93971

== ENCOUNTER → 2024-10-31 09:50 | Outpatient (BNV) | payer OTHER, SELFPAY | PROVIDERS: Visit Provider Radiology Diagnostic Radiology | DX: M79.605 Pain in left leg (principal) | CPT/HCPCS: 93971 ==

== ENCOUNTER 2024-11-03 10:11 | Outpatient (REF) | payer OTHER, SELFPAY ==
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
--- OUTSIDE RECORDS SUMMARY | 2024-11-03 11:32 | XMS_ITS | Patient Health Record ---
Author Organization [employer] [facility] Address [address] [address] Care Team Providers Care Milling Operator Name Role Phone Alexis Rincon MD Primary Care Provider Unavaila KEVIN Bravo Unavailable [phone] Allergies Allergen (clinical drug ingredient) Drug/Non Drug [...] Notes Problem Malignant neoplasm of female breast (090131842) Malignant neoplasm of unspecified site of right female breast (C50.911) Active confirmed Vital Signs Heart Rate 78 /min 05/17/2024 Temperature 97.3 degrees Fahrenheit 05/17/2024 Blood pressure diastolic 80 mm Hg 05/17/2024 Height 64 in 05/17/2024 Blood pressure systolic 122 mm Hg 05/17/2024 Weight 145 lbs 05/17/2024 BMI 24.89 kg/m2 05/17/2024 Encounters Encounter Location Date Provider Diagnosis [facility] [address] [place] [address] 05/17/2024 KEVIN HICKS Encounter for gynecological examination [...] Provider Name:KEVIN Oropeza, 05/22/2025 03:00:00 PM, [address], [place], [address], Insurance Providers Payer Name Payer Address Payer Phone Subscriber Number Group Number Insured Name Patient Relationship to Insured Coverage Start Date Coverage End Date [employer] [place] [address] [address] [place] [address] [id number] CAROLINE SIMMONS Self - patient is the [...]
== END 2024-11-03 10:12 | disposition home or self-care (01) ==
LOC: HO.HOSX 10:11
PROVIDERS: Visit Provider Physician Assistant
DX: Z13.89 Encounter for screening for other disorder (principal)

== ENCOUNTER → 2024-11-07 08:11 | Outpatient (BNV) | payer OTHER, SELFPAY | PROVIDERS: Visit Provider Radiology Diagnostic Radiology | DX: M17.12 Unilateral primary osteoarthritis, left knee (principal); M25.462 Effusion, left knee | CPT/HCPCS: 73562 ==

== ENCOUNTER 2024-11-07 08:14 | Outpatient (AMB) | payer OTHER, SELFPAY ==
--- NOTE | 2024-11-07 08:17 | MHC.OFFVIS ---
Intake Visit Reasons: New Prob - left knee pain Intake Note: Tracie is a 69 year old female who [facility] of her left knee pain. She states that her knee buckled about a week and a half ago. Patient notices that her pain is worse when she is going up and down the stairs and bending her knee. She had tried taking Advil with relief and also icing. Patient states that her pain is not as bad today. Allergies amoxicillin Allergy (Severe, Verified 11/07/24 08:27) Anaphylaxis HPI HPI New Prob - left knee pain: Details: Ms. 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 She reports that on Thursday her left knee gave out causing an increase in pain. She had difficulty with ambulating and putting pressure onto the knee afterwards. Since then her pain has subsided quite a bit. She did have an ultrasound to rule out DVT which was negative. [facility] Medical History (Updated 11/07/24 @ 08:42 by Nadira Poole PA-C) Osteoporosis No pertinent past medical history Surgical History Hx of mastectomy History of tonsillectomy Family History Mother Breast cancer Father CVD (cardiovascular disease) Social History Household Members: Spouse Housing: House Do you presently have visiting nurse or other home services: No Alcohol intake: never Patient Tobacco Use Status: Never used Tobacco Advance Directives Date on File: 11/30/22 service: No 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al status: employed 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: [employer] rt hand Review of Systems Const All systems reviewed & are unremarkable except as noted in HPI and below Physical Exam Const General: cooperative, healthy appearing and no acute distress Resp Effort & Inspection: normal respiratory effort and able to speak in complete sentences Extrem Other: Left knee normal to inspection no ecchymosis, erythema or joint effusion. No tenderness to palpation along the medial and lateral joint lines. Crepitus felt with range of motion. Range of motion is 0-120 degrees. Negative Steinmann. NVI. Assessment & Plan Assessment & Plan (1) Osteoarthritis of left knee: Code(s): M17.12 - Unilateral primary osteoarthritis, left knee Category: Medical Plan Patient will resume fraction normal activities as tolerated. I have recommended anti-inflammatories as needed for pain, rest and ice. There is no additional orthopedic intervention that is needed at this time. X-rays of the left knee which were obtained while in the office today and were reviewed by me, Nadira Poole PA-C, revealed osteoarthritis Orders: Orders XR knee LT 3V Today M25.569 - Pain in unspecified knee Coding Level of Care Code Est Pt Level 3 (50818) Diagnoses Osteoarthritis of left knee M17.12
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
--- OUTSIDE RECORDS SUMMARY | 2024-11-07 08:30 | XMS_ITS | Patient Health Record ---
Author Organization [employer] [facility] Address [address] [address] Care Team Providers Care Architecture Professor Name Role Phone Alexis Rinocn MD Primary Care Provider Unavaila KEVIN Bravo Unavailable [phone] Allergies Allergen (clinical drug ingredient) Drug/Non Drug [...] Notes Problem Malignant neoplasm of female breast (631801658) Malignant neoplasm of unspecified site of right female breast (C50.911) Active confirmed Vital Signs Heart Rate 78 /min 05/17/2024 Temperature 97.3 degrees Fahrenheit 05/17/2024 Blood pressure diastolic 80 mm Hg 05/17/2024 Height 64 in 05/17/2024 Blood pressure systolic 122 mm Hg 05/17/2024 Weight 145 lbs 05/17/2024 BMI 24.89 kg/m2 05/17/2024 Encounters Encounter Location Date Provider Diagnosis [facility] [address] [place] [address] 05/17/2024 KEVIN HICKS Encounter for gynecological examination [...] Provider Name:KEVIN Oropeza, 05/22/2025 03:00:00 PM, [address], [address], [place], [address], Insurance Providers Payer Name Payer Address Payer Phone Subscriber Number Group Number Insured Name Patient Relationship to Insured Coverage Start Date Coverage End Date [employer] [place] [address] [address] [place] [address] [id number] CAROLINE SIMMONS Self - patient is the [...]
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
== END 2024-11-07 08:49 | disposition home or self-care (01) ==
LOC: HO.HOS 08:14
PROVIDERS: Visit Provider Physician Assistant
DX: M17.12 Unilateral primary osteoarthritis, left knee (principal)
CPT/HCPCS: 99213

== ENCOUNTER 2024-11-07 08:15 | Outpatient (REF) | payer OTHER, SELFPAY ==
--- NOTE | ~2024-11-07 | XR_ITS ---
EXAMINATION: XR KNEE, LEFT CLINICAL INFORMATION: M25.569 - Pain in unspecified knee COMPARISON: None available. TECHNIQUE: AP view bilateral knees standing, lateral and patellofemoral views left knee. FINDINGS: Right Knee: No fracture or bone lesion. Normal alignment. Moderate medial and mild lateral compartment osteoarthrosis. Normal soft tissues. Left Knee: No fracture, dislocation, or suspicious bone lesion. Moderate medial compartment osteoarthrosis with marginal osteophytic spurs and mild subchondral sclerosis. There is spurring of the tibial spines. There are mild changes of osteoarthrosis in the patellofemoral lateral compartments. There is a small to moderate sized suprapatellar joint effusion. There are normal soft tissues. XR/XR knee LT 3V IMPRESSION: 1. Tricompartmental osteoarthritis of the left knee, moderate in the medial compartment. (Similar findings of the right knee on the single AP view). 2. Small to moderate-sized left knee joint effusion. Electronically signed by: Nick Hussein MD 11/07/2024 11:54 AM EDT
== END 2024-11-07 08:16 | disposition home or self-care (01) ==
LOC: HO.HOSX 08:15
PROVIDERS: Visit Provider Physician Assistant
DX: M25.562 Pain in left knee (principal)
CPT/HCPCS: 73562

== ENCOUNTER 2024-11-10 14:19 | Outpatient (AMB) | payer OTHER, SELFPAY ==
--- NOTE | 2024-11-10 14:27 | A.OFFVIS_ITS ---
Intake Visit Reasons: INJ- Left knee injection Intake Note: Tracie is a 69 year old female who presents today for a Left knee Injection. She reports that she has had worsening left knee pain. Allergies amoxicillin Allergy (Severe, Verified 11/07/24 08:27) Anaphylaxis HPI HPI INJ- Left knee injection: Details: Hortensia comes in today for a few weeks of ongoing left knee pain. She states she feels her knee is full with fluid and she has difficulty getting through her day without discomfort. 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 retropatellar ttp and ttp medial joint line. Neg [facility] Procedures Joint Inj/Aspir; Non-Pain Clin Joint Injection/Drain Details: Injected 1 mL of Decadron and 3 mL 1% lidocaine and 3 mL of 0.25% Marcaine. Site was prepped using aseptic technique. Patient tolerated the procedure well. Shoulders, Hips, Knees, Knee Large Joint Injection [id number]: Left Knee Coding Procedure code (CPT) selection complete Results Reviewed Results Reviewed: I personally reviewed relevant radiographs. 1. Tricompartmental osteoarthritis of the left knee, moderate in the medial compartment. (Similar findings of the right knee on the single AP view). 2. Small to moderate-sized left knee joint effusion. Assessment & Plan Assessment & Plan (1) Osteoarthritis of left knee: Code(s): M17.12 - Unilateral primary osteoarthritis, left knee Category: Medical Plan: This is a 69-year-old with a tricompartmental osteoarthritis of the left knee wi th a joint effusion. I explained this to her. She has known arthritis and understands the implications of the diagnosis. I injected her left knee. She can follow up as needed. Medications: New meloxicam 15 mg PO DAILY 30 tabs 1RF Coding Level of Care Code Est Pt Level 3 (00461) Diagnoses Osteoarthritis of left knee M17.12 CPT Codes Shoulders, Hips, Knees, - Knee Large Joint Injection : Left Knee ([id number])
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
--- OUTSIDE RECORDS SUMMARY | 2024-11-10 15:09 | XMS_ITS | Patient Health Record ---
Author Organization [employer] [facility] Address [address] [address] Care Team Providers Care Production Or Plant Engineer Name Role Phone Alexis Rincon MD Primary Care Provider Unavaila KEVIN Bravo Unavailable [phone] Allergies Allergen (clinical drug ingredient) Drug/Non Drug [...] Status Risk Notes Problem Malignant neoplasm of unspecified site of right female breast (C50.911) Active confirmed Vital Signs Heart Rate 78 /min 05/17/2024 Temperature 97.3 degrees Fahrenheit 05/17/2024 Blood pressure diastolic 80 mm Hg 05/17/2024 Height 64 in 05/17/2024 Blood pressure systolic 122 mm Hg 05/17/2024 Weight 145 lbs 05/17/2024 BMI 24.89 kg/m2 05/17/2024 Encounters Encounter Location Date Provider Diagnosis [facility] [address] [place] [address] 05/17/2024 KEVIN HICKS Encounter for gynecological examination [...] Provider Name:KEVIN Oropeza, 05/22/2025 03:00:00 PM, [address], [address], [place], [address], Insurance Providers Payer Name Payer Address Payer Phone Subscriber Number Group Number Insured Name Patient Relationship to Insured Coverage Start Date Coverage End Date [employer] [place] [address] [address] [place] [address] [id number] CAROLINE SIMMONS Self - patient is the [...]
== END 2024-11-10 14:37 | disposition home or self-care (01) ==
LOC: HO.HOS 14:19
PROVIDERS: Visit Provider Orthopaedic Surgery
DX: M17.12 Unilateral primary osteoarthritis, left knee (principal)
CPT/HCPCS: 20610

== ENCOUNTER → 2024-11-10 14:19 | Outpatient (BNVA) | payer OTHER, SELFPAY | PROVIDERS: Visit Provider Orthopaedic Surgery | DX: M17.12 Unilateral primary osteoarthritis, left knee (principal); M25.462 Effusion, left knee | CPT/HCPCS: 20610; J0665; J1100; J2003 ==

== ENCOUNTER → 2024-12-13 09:13 | Outpatient (BNV) | payer OTHER, SELFPAY | PROVIDERS: Visit Provider Radiology Diagnostic Radiology | DX: S83.272A Complex tear of lateral meniscus, current injury, left knee, initial encounter (principal) | CPT/HCPCS: 73721 ==

== ENCOUNTER 2024-12-13 09:52 | Outpatient (REF) | payer OTHER, SELFPAY ==
--- NOTE | ~2024-12-13 | MR_ITS ---
EXAM: MRI left knee without contrast TECHNIQUE: Multiplanar multisequence MR imaging performed through the left knee. INDICATION: Instability, meniscus tear, osteoarthritis PRIOR: X-ray performed November 07, 2024 FINDINGS: Menisci: There is a complex tear involving the anterior horn lateral meniscus. There is a horizontal component extending from peripheral margin to the free margin. There is also a longitudinal component extending to the tibial surface. There is fraying of the inferior margin of the posterior horn lateral meniscus. Curvilinear fluid signal tracks through the peripheral tibial margin of the posterior horn. The root is small and ill-defined. There is severe extrusion of the medial meniscal body. The body is ill-defined and irregular with intermediate signal. The posterior horn of the medial meniscus is also irregular and frayed with linear intermediate signal. Is indistinct. Additionally, there is linear low signal anterior to the root of the posterior horn medial meniscus best seen on coronal PD image (image 19/20) and axial image 19/30 concerning for small displaced meniscal flap. ACL/PCL: ACL demonstrates increased signal. There is mild attenuation of proximal fibers. There is 7 mm anterior tibial translation. PCL appears intact. Extensor mechanism: There is a joint effusion. There is focal edema in the deep superior fat pad of Hoffa probably related to joint effusion. MCL/LCL: MCL is bowed outward by the extruded meniscus. It is intact. LCL complex is intact. Articular cartilage: The patella demonstrates thickness cartilage defect across the middle facet sparing the far medial margin. There is also delamination undermining up to 7 mm of the adjacent lateral facet articular cartilage of the upper third patella. Medial trochlea demonstrates diffuse irregular deep partial thickness articular cartilage loss extending to the trochlear groove Posterior nonweightbearing region of the lateral femoral condyle demonstrates irregular shallow and deep partial-thickness articular cartilage loss. There is also shallow partial thickness articular cartilage defect in the posterior weightbearing region lateral femoral condyle. There is thinning of articular cartilage along the lateral joint line of the lateral tibial plateau involving approximately half of the cartilage thickness. Medial compartment: Medial femoral condyle demonstrates diffuse irregular shallow and deep partial-thickness articular cartilage loss through the central weightbearing region and extending into the posterior nonweightbearing region. Medial tibial plateau demonstrates thinning of articular cartilage along the medial joint line involving greater than half of the cartilage thickness. Bones/Marrow: Reactive marrow signal changes are present in the subchondral bone of the medial tibial plateau. There are moderate sized marginal osteophytes that are largest along the medial joint line and smallest one patella. Soft tissues: Mild edema reticulates the subcutaneous soft tissues. There is also fluid signal in the popliteus muscle, likely secondary to the joint effusion. MR/MR knee LT wo con IMPRESSION: Severe osteoarthritis with secondary joint effusion and likely underlying synovitis. 3 compartment articular cartilage defects are most pronounced in the medial facet of patella. There is a complex tear anterior horn lateral meniscus and likely a tear of the peripheral tibial margin of the posterior horn lateral meniscus. There is severe extrusion of the medial meniscal body. It is degenerated, frayed, and torn. Tear extends in the posterior horn and likely into the meniscal root. There is probably a small meniscal flap displaced anterior to the meniscal root. Appears grossly intact but demonstrate abnormal increased signal. There is anterior tibial translation suggesting underlying laxity. Electronically signed by: Francisco Rosenthal MD 12/13/2024 12:26 PM EDT
--- OUTSIDE RECORDS SUMMARY | 2024-12-13 11:07 | XMS_ITS | Patient Health Record ---
Author Organization [employer] [facility] Address [address] [address] Care Team Providers Care Filter Changer Name Role Phone Alexis Rincon MD Primary Care Provider Unavaila KEVIN Bravo Unavailable [phone] Allergies Allergen (clinical drug ingredient) Drug/Non Drug [...] Notes Problem Malignant neoplasm of female breast ([id number]) Malignant neoplasm of unspecified site of right female breast (C50.911) Active confirmed Vital Signs Heart Rate 78 /min 05/17/2024 Temperature 97.3 degrees Fahrenheit 05/17/2024 Blood pressure diastolic 80 mm Hg 05/17/2024 Height 64 in 05/17/2024 Blood pressure systolic 122 mm Hg 05/17/2024 Weight 145 lbs 05/17/2024 BMI 24.89 kg/m2 05/17/2024 Encounters Encounter Location Date Provider Diagnosis [facility] [address] [place] [address] 05/17/2024 KEVIN HICKS Encounter for gynecological examination [...] Provider Name:KEVIN Oropeza, 05/22/2025 03:00:00 PM, [address], [address], [place], [address], Insurance Providers Payer Name Payer Address Payer Phone Subscriber Number Group Number Insured Name Patient Relationship to Insured Coverage Start Date Coverage End Date [employer] [place] [address] [address] [place] [phone] [id number] CAROLINE SIMMONS Self - patient is the [...]
== END 2024-12-13 09:53 | disposition home or self-care (01) ==
LOC: HO.MRI 09:52
PROVIDERS: Visit Provider Internal Medicine
DX: M25.362 Other instability, left knee (principal)
CPT/HCPCS: 73721

== ENCOUNTER 2024-12-21 10:29 | Outpatient (AMB) | payer OTHER, SELFPAY ==
[2024-12-21 10:31] VITALS: BMI 25.1
--- NOTE | 2024-12-21 10:31 | A.OFFVIS_ITS ---
Vital Signs 12/21/24 10:31 Height 5 ft 4 in Weight 146 lb BMI 25.1 Intake Visit Reasons: Left knee pain and giving way Intake Note: Tracie is a 69 year old female who presents with complaints of progressively worsening left knee pain and giving way. The patient describes her pain as sharp in nature. Most of the pain is along the medial aspect of her knee. The patient states that her left knee ?buckled? recently and she had acute onset of pain. She has had a cortisone injection which gave her minimal relief. She has also tried Tylenol and meloxicam which gave her only mild relief. The patient states that her left knee will give out several times per day. She has tried physical therapy exercises which aggravated her pain. Allergies amoxicillin Allergy (Severe, Verified 12/21/24 10:33) Anaphylaxis Medication List - Last Reconciled 12/21/24 by Ramone Pierce MD calcium carbonate 500 mg PO DAILY ibuprofen 400 mg PO Q6H PRN meloxicam 15 mg PO DAILY PFSH Medical History Osteoporosis No pertinent past medical history Surgical History Hx of mastectomy History of tonsillectomy Family History Mother Breast cancer Father CVD (cardiovascular disease) Social History Household Members: Spouse Housing: House Do you presently have visiting nurse or other home services: No Alcohol intake: never Patient Tobacco Use Status: Never used Tobacco Advance Directives Date on File: 11/30/22 service: No 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al status: employed 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: [employer] rt hand Physical Exam Vital Signs: BMI result Body Mass Index 25.1 Const Other: Well-nourished well-developed very friendly female awake alert and oriented x3 in no acute distress Extrem Other: Bilateral lower extremity examination shows good capillary refill, no skin lesions noted, normal sensation light touch Left knee examination shows a minimal effusion, mild crepitus with range of motion, tenderness along her medial joint line, positive Chucky's test, no instability Results Reviewed Results Reviewed: Standing full weight-bearing x-rays of the patient's left knee show mild to moderate joint space narrowing, no acute bony abnormalities MRI of the patient's left knee shows mild to moderate degenerative changes most significant in the medial compartment as well as a medial meniscus tear Assessment & Plan Assessment & Plan (1) Tear of medial meniscus of left knee: Code(s): S83.242A - Other tear of medial meniscus, current injury, left knee, initial encounter Category: Medical Plan Ms. Caro presents with progressively worsening left knee pain and mechanical symptoms due to a medial meniscus tear as well as early degenerative joint disease. I had a lengthy discussion with the patient regarding the treatment options. She wishes to hold off on total knee replacement surgery if at all possible. I agree with this plan. We did discuss the risks and benefits of left knee arthroscopic surgery. The patient does understand that she may not get 100% relief of her symptoms depending on the severity of her degenerative changes. The patient wishes to proceed with surgery. Surgery will involve left knee arthroscopic partial medial meniscectomy. She will be scheduled for next available date. She will follow-up as instructed. Feel free to call me at any time should questions regarding her orthopedic management arise. I spent 21 minutes in reviewing the patient's records and imaging studies, seeing the patient and documenting in the medical record. Coding Level of Care Code Est Pt Level 3 (86892) Complex EM visit Add On G2211 Diagnoses Tear of medial meniscus of left knee S83.242A
--- OUTSIDE RECORDS SUMMARY | 2024-12-21 11:56 | XMS_ITS ---
Author Name [facility] Organization Unknown Care Team Organization Name Specialty Phone Email Start Date End [facility] 12/14/2024
== END 2024-12-21 10:59 | disposition home or self-care (01) ==
LOC: HO.HOS 10:29
PROVIDERS: Visit Provider Orthopaedic Surgery
DX: S83.242A Other tear of medial meniscus, current injury, left knee, initial encounter (principal)
CPT/HCPCS: 99214

== ENCOUNTER 2025-01-02 05:58 | Day surgery (SDC) | payer OTHER, SELFPAY ==
[2024-12-28 15:13] VITALS: BMI 25.1
[2025-01-02] VITALS (8 sets, daily range): BP systolic 87–136; BP diastolic 46–82; PULSE 64–80; RESP 16; TEMP 36.2–36.5; O2SAT 95–98; BMI 24.7
[2025-01-02] MEDS: Lactated Ringers 1,000 ML 100 ML IVCONT (06:46)
--- NOTE | 2025-01-02 07:25 | HO.ANESPROP2 ---
Documented by User: Bibi Junior NP 12/29/24 15:22 HPI - Anesthesia Eval Consult details Narrative: 69yo F for Left Knee Arthroscopy with partial medial meniscectomy Hx of DRESS after amox 2022 with C admit. Did not require intubation s/p right mastectomy PMFSH Active Problems Active Problems: All Active Problems Tear of medial meniscus of left knee (Acute) Osteoarthritis of left knee (Acute) DRESS syndrome (Acute) Rash and nonspecific skin eruption (Acute) Arthritis of carpometacarpal (CMC) joint of right thumb (Acute) Varicose veins of left lower extremity with inflammation (Acute) Osteoporosis (Acute) Past Medical History Medical History (Updated 01/02/25 @ 06:18 by Nichelle Alan RN) Breast cancer, right DRESS syndrome Osteoarthritis Osteoporosis Family History Family History Mother Breast cancer Father CVD (cardiovascular disease) Surgical History Surgical History (Updated 01/02/25 @ 06:20 by Nichelle Alan RN) History of surgery H/O colonoscopy History of reconstruction of right breast Hx of right mastectomy Hx of breast surgery History of lumpectomy of right breast History of tonsillectomy Social History Social History Household Members: Spouse Housing: House Do you presently have visiting nurse or other home services: No Alcohol intake: never Patient Tobacco Use Status: Never used Tobacco Use of substances other than those prescribed or required for medical reasons: No Are you DNR?: No Advance Directives: No Advance Directives Information Provided: Yes Advance Directives Date on File: 11/30/22 Patient : No : No Poor oral hygiene: No service: No 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al status: employed 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: [employer]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 Meds Allergies Allergy/AdvReac Type Severity Reaction Status Date / Time amoxicillin Allergy Severe Anaphylaxis Verified 12/21/24 10:33 Penicillins Allergy Severe Anaphylaxis Verified 12/30/24 10:28 Home Medications ?Medication ?Instructions ?Recorded ?Confirmed ?Last Taken ?Type calcium carbonate 500 mg PO DAILY 11/30/22 01/02/25 Unknown History ibuprofen 200 mg tablet 400 mg PO Q6H PRN Fever Or Pain 11/30/22 01/02/25 11/30/22 History Exam Height,Weight and Vital Signs: Height 5 ft 4 in Weight 66.224 kg Assessment and Plan Assessment Anesthesia Assessment: Chart Reviewed Documented by User: Leonor Otoole DO 01/02/25 07:56 PMFSH Past Medical History Medical History (Updated 01/02/25 @ 06:18 by Nichelle Alan RN) Breast cancer, right DRESS syndrome Osteoarthritis Osteoporosis Family History Family History Mother Breast cancer Father CVD (cardiovascular disease) Family history of problems with anesthesia: No Surgical History Surgical History (Updated 01/02/25 @ 06:20 by Nichelle Alan RN) History of surgery H/O colonoscopy History of reconstruction of right breast Hx of right mastectomy Hx of breast surgery History of lumpectomy of right breast History of tonsillectomy History of Problems with Anesthesia: No Social History Social History Household Members: Spouse Housing: House Do you presently have visiting nurse or other home services: No Alcohol intake: never Patient Tobacco Use Status: Never used Tobacco Use of substances other than those prescribed or required for medical reasons: No Are you DNR?: No Advance Directives: No Advance Directives Information Provided: Yes Advance Directives Date on File: 11/30/22 Patient : No : No Poor oral hygiene: No service: No 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al status: employed 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 Meds Allergies Allergy/AdvReac Type Severity Reaction Status Date / Time amoxicillin Allergy Severe Anaphylaxis Verified 12/21/24 10:33 Penicillins Allergy Severe Anaphylaxis Verified 12/30/24 10:28 Home Medications ?Medication ?Instructions ?Recorded ?Confirmed ?Last Taken ?Type calcium carbonate 500 mg PO DAILY 11/30/22 01/02/25 Unknown History ibuprofen 200 mg tablet 400 mg PO Q6H PRN Fever Or Pain 11/30/22 01/02/25 11/30/22 History Exam Exam Date and Time: 01/02/25 0725 Height,Weight and Vital Signs: Height 5 ft 4 in Weight 66.224 kg Vital Signs Temperature 97.7 F 01/02/25 06:39 Pulse Rate 80 01/02/25 06:39 Respiratory Rate 16 01/02/25 06:39 Blood Pressure 136/82 01/02/25 06:39 Pulse Oximetry 97 01/02/25 06:39 Oxygen Delivery Method Room Air 01/02/25 06:39 Temperature 97.7 F 01/02/25 06:39 Pulse Rate 80 01/02/25 06:39 Respiratory Rate 16 01/02/25 06:39 Blood Pressure 136/82 01/02/25 06:39 Pulse Oximetry 97 01/02/25 06:39 Oxygen Delivery Method Room Air 01/02/25 06:39 Airway Mallampati Class: I TM Dist: <=3cm Neck ROM: Full Loose/Missing/Broken Teeth: No (patient denies any loose or broken teeth) Heart: S1S2 Lungs: CTAB Assessment and Plan Assessment Anesthesia Assessment: Anesthesia Plan Discussed and Chart Reviewed Final Anesthetic Review Family History of Problems with Anesthesia: No History of Problems with Anesthesia: No NPO: Yes ASA Class: II Final Preanesthetic Review: No Changes in Pt Med Stat, Meds/Allgs Chart Reviewed, Consent Obtained/Reviewed and Anes Risks/Benef Reviewed Patient Risk: Low Procedure Risk: Low Anesthetic Plan Anesthetic Plan: GA and Agree w/ Assess. and Plan Disposition: Standard PACU
[2025-01-02] MEDS: Clindamycin Phosphate/D5W 900 MG/50 ML PIGGYBACK 50 MG IV (07:45)
[2025-01-02] MEDS: Acetaminophen 1,000 MG/100 ML PIGGYBACK 400 MG IV (08:15)
--- NOTE | 2025-01-02 08:31 | PM.OP ---
Brief Operative Note Date of Service: 01/02/25 Pre-op diagnosis: Left knee medial meniscus tear, left knee degenerative joint disease Procedure: Left knee arthroscopic partial medial meniscectomy, left knee arthroscopic chondroplasty of the undersurface of the patella as well as the medial femoral condyle Implants: None Surgeon: Ramone Pierce MD Anesthesia: GLMA Was an Carbon Coating Machine Operator used for this Procedure?: No Estimated blood loss (mL): 10 Pathology: none sent Condition: stable Disposition: PACU
--- NOTE | 2025-01-02 08:32 | W.PM.OPN ---
Operative Note Operative Note Date of Service: 01/02/25 Narrative: After the patient was identified as Tracie Caro and her left knee was initialed by myself they were brought to the operating room where general anesthesia was induced by the anesthesiologist in routine fashion. Because of the patient's allergy to penicillins she was given 900 mg of IV clindamycin preoperatively for infection prophylaxis. The patient's left lower extremity was prepped and draped in sterile fashion. A formal time-out was completed. Marcaine was injected into the planned incision sites as well as the patient's left knee joint. A #11 scalpel blade was used to make an anterolateral portal 1 cm proximal to the joint line and 1 cm lateral to the patellar tendon. Blunt trocar technique was used to enter the suprapatellar pouch with the knee in extension. Diagnostic arthroscopy showed multiple bands of thickened plica which would be excised at the end of the procedure. There were no loose bodies or abnormalities found in either the medial or lateral gutters. The articular surface of the patella showed diffuse grades 2 and 3 degenerative changes. The trochlear groove articular surface showed diffuse grades 3 and 4 degenerative changes. The patient's knee was flexed to 45 degrees and a valgus force was placed upon it. The medial compartment was entered. An anteromedial portal was made 1 cm proximal to the joint line and 1 cm medial to the patellar tendon. Probing of the medial meniscus showed a radial tear of the anterior horn. A partial medial meniscectomy was performed using the arthroscopic shaver. Following the partial meniscectomy the remainder of the meniscus tissue was stable. There were diffuse grade 2 degenerative changes of the medial femoral condyle as well as grades 1 and 2 degenerative changes of the medial tibial plateau. The articular surface of the medial femoral condyle was then made smooth using the arthroscopic shaver. The articular surface of the medial tibial plateau was already smooth so no chondroplasty was indicated. The patient's knee was placed into a neutral position. There was no injury to the anterior cruciate ligament. The patient's knee was then placed in the figure of 4 position and the lateral compartment was entered. There was no evidence of lateral meniscus tearing. There were minimal degenerative changes of the lateral femoral condyle and lateral tibial plateau. The patient's knee was once again brought into extension and the suprapatellar pouch was entered. The arthroscopic shaver and the ArthroCare Wand were used to excise the thickened bands of plica. The undersurface of the patella was then made smooth using the arthroscopic shaver. The articular surface of the trochlear groove was already smooth so no chondroplasty was indicated. The knee joint was irrigated and then drained. All arthroscopic instruments were removed. The 2 portals were closed with 3-0 nylon interrupted suture. The knee joint was injected with Marcaine. Dry sterile dressing and Qamar bandages were placed over the patient's knee. The patient was awoken and extubated in the operating room. The patient was transferred to the recovery room in stable condition.
[2025-01-02] MEDS: oxyCODONE HCl Immed Release 5 MG TABLET PO (09:25)
== END 2025-01-02 10:26 | disposition home or self-care (01) ==
PROVIDERS: Visit Provider Orthopaedic Surgery
PROC: (CPT 29870; principal; 2025-01-02 07:30)
DX: S83.242A Other tear of medial meniscus, current injury, left knee, initial encounter (principal); M67.52 Plica syndrome, left knee; M25.562 Pain in left knee; M17.12 Unilateral primary osteoarthritis, left knee; M23.52 Chronic instability of knee, left knee; X50.1XXA Overexertion from prolonged static or awkward postures, initial encounter; Y93.9 Activity, unspecified; Y92.9 Unspecified place or not applicable; Y99.9 Unspecified external cause status; D72.12 Drug rash with eosinophilia and systemic symptoms syndrome; Z85.3 Personal history of malignant neoplasm of breast; Z90.11 Acquired absence of right breast and nipple; M81.0 Age-related osteoporosis without current pathological fracture; Z79.1 Long term (current) use of non-steroidal anti-inflammatories (NSAID); Z79.899 Other long term (current) drug therapy; Z88.0 Allergy status to penicillin; Z98.890 Other specified postprocedural states
CPT/HCPCS: 29881; J0131; J0171; J0736; J1100; J1885; J2003; J2250; J2405; J2704; J2795; J3010

== ENCOUNTER → 2025-01-02 05:58 | Outpatient (BNV) | payer OTHER, SELFPAY | PROVIDERS: Visit Provider Orthopaedic Surgery | DX: S83.242A Other tear of medial meniscus, current injury, left knee, initial encounter (principal) | CPT/HCPCS: 29881 ==

== ENCOUNTER 2025-01-17 07:59 | Outpatient (AMB) | payer OTHER, SELFPAY ==
--- NOTE | 2025-01-17 08:02 | A.OFFVIS_ITS ---
Intake Visit Reasons: PO-Lt Knee 01/02/25 Intake Note: Tracie is a 69 year old female who presents with complaints of mild intermittent discomfort in her left knee after undergoing left knee arthroscopic surgery on 01/02/2025. She continues with her home stretching program. She denies any fevers or chills. Allergies amoxicillin Allergy (Severe, Verified 01/17/25 08:13) Anaphylaxis Penicillins Allergy (Severe, Verified 01/17/25 08:13) Anaphylaxis Medication List - Last Reviewed 01/17/25 by Dory Moss calcium carbonate 500 mg PO DAILY ibuprofen 400 mg PO Q6H PRN meloxicam 15 mg PO DAILY PFSH Medical History (Updated 01/17/25 @ 08:14 by Ramone Pierce MD) Breast cancer, right DRESS syndrome Osteoarthritis Osteoporosis Surgical History (Updated 01/02/25 @ 06:20 by Nichelle Alan RN) History of surgery H/O colonoscopy History of reconstruction of right breast Hx of right mastectomy Hx of breast surgery History of lumpectomy of right breast History of tonsillectomy Family History Mother Breast cancer Father CVD (cardiovascular disease) Social History Household Members: Spouse Housing: House Do you presently have visiting nurse or other home services: No Alcohol intake: never Patient Tobacco Use Status: Never used Tobacco Advance Directives Date on File: 11/30/22 service: No 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al status: employed 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 Caro is doing well after undergoing left knee arthroscopic surgery on 01/02/2025. Her sutures were removed and Steri-Strips placed over her incisions. She will continue taking meloxicam as needed for her discomfort. I will clear her to return to work once her discomfort and strength have improved. She will contact me prior to her follow-up appointment in 2 months should any questions or concerns arise. Feel free to call me at any time should questions regarding her orthopedic management arise. Coding Level of Care Code Global (64195) Diagnoses Left knee pain M25.562
--- OUTSIDE RECORDS SUMMARY | 2025-01-17 08:02 | XMS_ITS | Patient Health Record ---
Author Organization [facility] Address [address] [address] Care Team Providers Care Forensic Document Examiner Name Role Phone Alexis Rincon MD Primary Care Provider Unavaila KEVIN Bravo Unavailable [phone] Allergies Allergen (clinical drug ingredient) Drug/Non Drug [...] Notes Problem Malignant neoplasm of female breast (829403316) Malignant neoplasm of unspecified site of right female breast (C50.911) Active confirmed Vital Signs Heart Rate 78 /min 05/17/2024 Temperature 97.3 degrees Fahrenheit 05/17/2024 Blood pressure diastolic 80 mm Hg 05/17/2024 Height 64 in 05/17/2024 Blood pressure systolic 122 mm Hg 05/17/2024 Weight 145 lbs 05/17/2024 BMI 24.89 kg/m2 05/17/2024 Encounters Encounter Location Date Provider Diagnosis [facility] [address] [place] [address] 05/17/2024 KEVIN HICKS Encounter for gynecological examination [...] Provider Name:KEVIN Oropeza, 05/22/2025 03:00:00 PM, [address], [address], [place], [address], Insurance Providers Payer Name Payer Address Payer Phone Subscriber Number Group Number Insured Name Patient Relationship to Insured Coverage Start Date Coverage End Date [employer] [place] [address] [address] [place] [phone] [id number] CAROLINE SIMMONS Self - patient is the [...]
--- OUTSIDE RECORDS SUMMARY | 2025-01-17 08:02 | XMS_ITS ---
Author Name [facility] [place] Organization Unknown Care Team Organization Name Specialty Phone Email Start Date End [facility] 12/14/2024
== END 2025-01-17 08:31 | disposition home or self-care (01) ==
LOC: HO.HOS 07:59
PROVIDERS: Visit Provider Orthopaedic Surgery
DX: M25.562 Pain in left knee (principal)
CPT/HCPCS: 99024

== ENCOUNTER 2025-02-08 10:37 | Outpatient (AMB) | payer OTHER, SELFPAY ==
--- NOTE | 2025-02-08 10:47 | A.OFFVIS_ITS ---
Vital Signs 02/08/25 11:01 Height 5 ft 4 in Weight 147 lb BMI 25.2 BP 120/70 Blood Pressure Location Lt brachial Position Sitting Pulse 80 Pulse Source Pulse Oximeter Pulse Oximetry (%) 98 Oxygen Delivery Method Room Air Intake Visit Reasons: arthritis/New Patient Intake Note: New patient presents for Arthritis. Patient c/o of pain and swelling on fingers. C/O pain on Lt knee. Patient has experience these symptoms for about 5 years. Taking no medication. Allergies amoxicillin Allergy (Severe, Verified 02/08/25 10:59) Anaphylaxis Penicillins Allergy (Severe, Verified 02/08/25 10:59) Anaphylaxis Medication List - Last Reconciled 02/08/25 by Ondina Rodriguez MD ibuprofen 400 mg PO Q6H PRN meloxicam 15 mg PO DAILY HPI Comments Details: Patient is a 69-year-old female with hx of DCIS s/p right mastectomy 2013, osteoporosis now resolved and polyarticular OA (hands and knees) here today for a second opionion on her hand OA Has a long history of known hand OA. Seen by ortho and has received 1st CMC joint injections with improvement in mobility and pain Strong family history of OA (mom and grandmother) Here today hoping for additional recommendations Of note she has a history of knee OA complicated by left medial menicus tear requiring arthroscopy Knee has improved significantly Diagnosed with osteoporosis in 07/2021 based on DEXA. No treatment started Patient took calcium and vitamin D with improvement in her 03/2024 DEXA, now normal [facility] Medical History (Updated 02/08/25 @ 11:42 by Ondina Rodriguez MD) Breast cancer, right DRESS syndrome Osteoarthritis Osteoporosis Surgical History History of surgery H/O colonoscopy History of reconstruction of right breast Hx of right mastectomy Hx of breast surgery History of lumpectomy of right breast History of tonsillectomy Family History Mother Breast cancer Father CVD (cardiovascular disease) Social History Household Members: Spouse Housing: House Do you presently have visiting nurse or other home services: No Alcohol intake: never Patient Tobacco Use Status: Never used Tobacco Advance Directives Date on File: 11/30/22 service: No 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al status: employed 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: [employer] rt hand Review of Systems Const All systems reviewed & are unremarkable except as noted in HPI and below Physical Exam Exam Exam: Vital signs reviewed Physical Examination CONSTITUITIONAL Patient alert and cooperative. Well appearing and in no apparent painful distress MSK Hands * Right Hand: Able to make a fist. No swelling or tenderness to palpation of these joints. * Left Hand: Able to make a fist. No swelling or tenderness to palpation of these joints. * Prominent Herbedens nodes noted bilaterally and Prominent Bouchards nodes noted bilaterally * Squarring of the 1st CMC bilaterally Wrists * Right Wrist: Full ROM. 70 degrees of wrist flexion, 80 degrees of wrist extension. No swelling or TTP * Left Wrist: Full ROM. 70 degrees of wrist flexion, 80 degrees of wrist extension. No swelling or TTP Elbows * Right Elbow: Full ROM. No swelling or TTP. No TTP of the medial and lateral epicondyles * Left Elbow: Full ROM. No swelling or TTP. No TTP of the medial and lateral epicondyles Shoulders * Right shoulder: Full ROM. No swelling noted. No TTP of the AC joint, subacromial bursa or posterior shoulder * Left shoulder: Full ROM. No swelling noted. No TTP of the AC joint, subacromial bursa or posterior shoulder Knees * Right knee: Full ROM. No swelling noted. No TTP of the knee joint lie or pes anserine bursa * Left knee: Full ROM. Mild swelling noted. No TTP of the knee joint lie or pes anserine bursa. * Crepitations felt bilaterally Ankles * Right ankle: Good ankle dorsiflexion and plantar flexion. No swelling. No TTP of the ankle joint * Left ankle: Good ankle dorsiflexion and plantar flexion. No swelling. No TTP of the ankle joint Feet * Right foot: Negative squeeze test * Left foot: Negative squeeze test Tender points? * No tenderness to palpation of the bilateral trapezius, supraspinatus, anterior costochondral junctions, bilateral suboccipital muscle insertions SKIN No rashes Vital Signs: Last Vital Signs Pulse 80 02/08/25 11:01 BP 120/70 02/08/25 11:01 Pulse Ox 98 02/08/25 11:01 Oxygen Delivery Method Room Air 02/08/25 11:01 BMI result Body Mass Index 25.2 Results Reviewed Results Reviewed: XR Hands 06/2021 FINDINGS: Mild to moderate interphalangeal, second metacarpophalangeal, first carpometacarpal and triscaphe degenerative joint changes are seen. Interphalangeal degenerative joint changes are most pronounced in the distal interphalangeal joint of the second digit. There is no acute fracture or dislocation. The carpal bones are normally aligned. The distal radius and ulna are intact. The soft tissues show mild swelling most pronounced in the second digit. IMPRESSION: Mild to moderate multilevel degenerative changes most consistent with osteoarthritis. No acute abnormality. XR Knee 11/2024 FINDINGS: Right Knee: No fracture or bone lesion. Normal alignment. Moderate medial and mild lateral compartment osteoarthrosis. Normal soft tissues. Left Knee: No fracture, dislocation, or suspicious bone lesion. Moderate medial compartment osteoarthrosis with marginal osteophytic spurs and mild subchondral sclerosis. There is spurring of the tibial spines. There are mild changes of osteoarthrosis in the patellofemoral lateral compartments. There is a small to moderate sized suprapatellar joint effusion. There are normal soft tissues. IMPRESSION: 1. Tricompartmental osteoarthritis of the left knee, moderate in the medial compartment. (Similar findings of the right knee on the single AP view). 2. Small to moderate-sized left knee joint effusion. DEXA 03/2024 FINDINGS: LEFT FEMUR, NECK: Current: BMD 0.917 g/cm2, Z-score 0.7, T-score -0.9, normal. Baseline: BMD 0.651 g/cm2. LEFT FEMUR, TOTAL: Current: BMD 1.033 g/cm2, Z-score 1.5, T-score 0.2, normal, 36.6% increase from baseline (<5% change is not significant). Baseline: BMD 0.756 g/cm2. AP SPINE L1-L4: Current: BMD 1.234 g/cm2, Z-score 2.1, T-score 0.4, normal, 1.0% decrease from baseline (<5% change is not significant). Baseline: BMD 1.246 g/cm2. Assessment & Plan Assessment & Plan (1) Polyarticular osteoarthritis: Code(s): M15.9 - Polyosteoarthritis, unspecified Plan: #Polyarticular OA Patient is a 69-year-old female with polyarticular osteoarthritis here today for a 2nd opinion. I had a discussion with the patient about osteoarthritis that it is a disease of the cartilage wear the cartilage did generate over time which is influenced by use and genetics. Unfortunately there are no treatments currently on the market that can regenerate cartilage and or the subsequent bone remodeling that occurs due to increased friction and inflammation within the joint. She has a lot of osteoarthritic changes to her hands including prominent Heberden nodes with deformity and Prasanna's nodes. Recommended that she continue with her meloxicam PRN as well as considering doing topical diclofenac in lieu of the meloxicam. She can also do paraffin wax baths and get periodic CMC injections Plan - RTC prn (2) Osteoporosis: Comment: DEXA 03/2024: AP Spine 0.4, Left femur neck -0.9, Left femur total 0.2 DEXA 07/2021: AP Spine 0.6, Left femur neck -2.8, Left femur total -2.0 Code(s): M81.0 - Age-related osteoporosis without current pathological fracture Category: Medical Qualifiers: Osteoporosis type: age-related Presence of current pathological fracture: without current pathological fracture Qualified Code(s): M81.0 - Age- related osteoporosis without current pathological fracture Plan: #Osteoporosis Patient with osteoporosis that has resolved likely due to her calcium and vitamin-D intake. Recommended that she continue vitamin-D intake and to get her calcium from her food by eating foods rich in calcium such as milk, yogurt, salmon, spinach and broccoli. Plan I spent 30 minutes reviewing the record and labs, taking a history, examining the patient, discussing the treatment plan, ordering diagnostic work up and d ocumenting in the medical record Coding Level of Care Code New Pt Level 3 (85333) Diagnoses Polyarticular osteoarthritis M15.9 Age-related osteoporosis without current pathological fracture M81.0 Osteoporosis type: age-related Presence of current pathological fracture: without current pathological fracture
[2025-02-08 11:01] VITALS: BP 120/70; PULSE 80; O2SAT 98; BMI 25.2
--- OUTSIDE RECORDS SUMMARY | 2025-02-08 11:17 | XMS_ITS | Clinical Summary ---
Author Organization [facility] Address [address] [place] [address] Phone Care Team Providers Care Marine Habitat Resource Specialist Name Role Phone Alexis Rincon MD Unavailable [phone] Alexis Rincon MD Primary Care Provider [phone] Allergies Active Allergy Reactions Criticality Noted Date Comments Amoxicillin Anaphylaxis High 11/29/2022 Medications APPLE CIDER VINEGAR ORAL Take 2 gummies a day Active calcium citrate/vitamin D3 (CALCIUM CITRATE + ORAL) Take 1 capsule by mouth daily. Active acetaminophen (TYLENOL) 500 MG tablet Take 1,000 mg by mouth daily. Active meloxicam (MOBIC) 15 MG tablet Take 15 mg by mouth daily. 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 08/14/2017 Encounters Date Type Department Care Team Description 12/13/2024 Orders Only [facility] [address] [place] [address] ProviderMoo MD 12/12/2024 1:30 PM EDT Office Visit [facility] [address] [place] [address] Alexis Rincon MD Instability of left knee joint (Primary Dx); Acute pain of left knee; Primary osteoarthritis of both knees; Elevated blood pressure reading in office without diagnosis of hypertension 12/12/2024 Telephone [facility] [address] [facility] [place] [address] Alexis Rincon MD MRI Knee 12/12/2024 Telephone [facility] [address] [place] [address] Alexis Rincon MD left knee pain from Last 3 Months Immunizations Immunization Administration Dates Next Due COVID-19 (Pre-04/27) Pfizer Vaccine, mRNA, PF 07/13/2020,06/22/2020 INFLUENZA, SPLIT VIRUS, TRIVALENT PF 05/10/2024 INFLUENZA, SPLIT VIRUS, TRIV ALENT W/ PRESERVATIVE IM 05/02/2016 Influenza Quadrivalent Prese rvative Free IM 04/29/2023,05/06/2022,04/18/2021,2019,04/13/2019,04/29/2018 Influenza Quadrivalent w/ Preservative IM 05/06/2017 Influenza, Unspecified Formulation 05/04/2018 Td (adult) 5 Lf Tetanus Toxo id, PF, Adsorbed 08/06/2004 Tdap 08/14/2017 Zoster recombinant 12/21/2020,08/31/2020 Family History Medical History Relation Comments Heart disease Father Breast cancer Mother Relation Status Comments Brother Alive Daughter 1 Alive Daughter 2 Alive Father (Age 62) Mother (Age 57) Sister 1 Alive Sister 2 Alive Son Alive Social History Tobacco Use Types Packs/Day Years Used Date Smoking Tobacco: Never Smokeless Tobacco: Never Tobacco Cessation:Counseling Given: Not Answered Alcohol Use Standard Drinks/Week Comments Yes 5 (1 standard drink = 0.6 oz pur e alcohol) wine Child or Family Care Answer Date Record ed Do you have problems with on e of the following making it difficult for you to work, study, or receive health care? No 09/08/2023 Education Answer Date Recorded Are you interested in more education? Not on daisy e 09/08/2023 Are you concerned about learning? Not on file 09/08/2023 No 09/08/2023 No 09/08/2023 Food Answer Date Recorded Within the past 6 months we worried whether our food would run out before we got money to buy more. Never True 09/08/2023 Within the past 6 months the food we bought just didn't last and we didn't have enough money to get more. Never True Residential Stability Answer Date Recor ded What is your housing situation today? I have davida sing 09/08/2023 How many times have you move d in the past 12 months? Zero (I did not move) 09/08/2023 Paying for Meds Answer Date Recorded Do you have trouble paying for medicines? No 09/08/2023 Paying Utility Bills Answer Date Record ed Do you have trouble paying your heating or elect ricity bill? No 09/08/2023 Transportation Answer Date Recorded Has the lack of transportati on kept you from medical appointments or from getting medications? No 09/08/2023 Unemployment Answer Date Recorded Are you currently unemployed or working on a part-time or temporary basis, and looking for work? No 09/02/2021 Digital Access Answer Date Recorded No 09/08/2023 Yes 09/08/2023 Do you have reliable internet access at home? Ye s 09/08/2023 Do you have a device (e.g., phone, tablet, computer) with a working camera? Yes 09/08/2023 Intimate Partner Violence Answer Date R ecorded Denied Basic Needs Not on file 09/05/2024 In the past 12 months have y ou been in a relationship with a person who hurts, threatens, or tries to control you? No 09/05/2024 Worried food would run out Not on file 09/05 In the past 12 months have y ou been in a relationship with a person who hurts, threatens, or tries to control you? No 09/05/2024 Comments No Sex and Gender Information Value Date Recorded Sex Assigned at Female 11/14/2021 8:02 PM EDT Legal Sex Female 6:15 PM EST Gender Identity Female 11/14/2021 8:02 PM EDT Sexual Orientation Straight 11/14/2021 8: 02 PM EDT Last Filed Vital Signs Vital Sign Reading Time Taken Comments Blood Pressure 136/80 12/12/2024 1:24 PM EDT Pulse 77 12/12/2024 1:24 PM EDT Temperature 36.3 C (97.4 F) 12/12/2024 1:24 PM EDT Respiratory Rate 16 09/12/2024 12:59 PM EDT Oxygen Saturation 97% 12/12/2024 1:24 PM EDT Inhaled Oxygen Concentration - - Weight 65 kg (143 lb 3.2 oz) 12/12/2024 1:24 PM EDT Height 163.7 cm (5' 4.45 ) 12/12/2024 1:24 PM ED T Body Mass Index 24.24 12/12/2024 1:24 PM EDT Plan of Treatment Upcoming Encounters Date Type Department Care Team (Late st Contact Info) Description 03/27/2025 1:30 PM EDT Office Visit [facility] [address] [place] [address] Alexis Rincon MD [address] [place] [address] 09/18/2025 1:00 PM EDT Office Visit [facility] [address] [place] [address] Alexis Rincon MD [address] [place] [address] [email or web address] Health Maintenance Due Date Last Done Comments COLOGUARD 2002 FIT TEST 2002 FOBT 2002 SIGMOIDOSCOPY 2002 VIRTUAL COLONOSCOPY 2002 PNEUMOCOCCAL VACCINES (50+ years) (1 of 1 - PCV) 2007 COVID-19 VACCINE ( season) 2024 06/22/2021, 07/13/2020, 06/22/2020 DEPRESSION SCREENING 09/05/2025 09/05/2024 MAMMOGRAM 07/07/2026 07/07/2024, 08/2024, 07/07/2024, Additional history exists LIPID PANEL 08/02/2027 08/02/2022, 07/07, 08/02/2022, Additional history exists Adult Td,Tdap Booster 08/14/2027 08/14/2017, 005 COLONOSCOPY 08/25/2028 08/25/2018, 04/05/2008 COLORECTAL CANCER SCREENING 08/25/2028 RSV VACCINE (1 - 1-dose 75+ series) 2032 ZOSTER VACCINES Completed 12/21/2020, 08/31/2020 HEPATITIS C SCREENING Completed 11/30/2022, 023 OSTEOPOROSIS SCREENING INITIAL (ONE-TIME) Completed 09/12/2024, 09/12/2024, 03/15/2024, Additional history exists SMOKING STATUS SCREENING (Once After 26 Yrs) Completed 12/12/2024 HEPATITIS A VACCINES Aged Out No long er eligible based on patient's age to complete this topic HIB VACCINES Aged Out No longer eligi ble based on patient's age to complete this topic MENINGOCOCCAL VACCINES (ACWY) Aged Out No longer eligible based on patient's age to complete this topic MENINGOCOCCAL VACCINES (B) Aged Out N o longer eligible based on patient's age to complete this topic Medical Devices Not on file Procedures Procedure Name Priority Date/Time Associated Diagnosis Comments OUTSIDE MR IMAGING REPORT ONLY Routine 12/13/2024 3:59 PM EDT OUTSIDE IMAGING Routine 12/13/2024 1:09 PM EDT MRI KNEE (LEFT) Routine 12/12/2024 2:07 PM EDT Instability of left knee joint DEXA SCAN Routine 09/12/2024 4:48 PM EDT MAMMOGRAPHY Routine 07/07/2024 10:20 AM EST OUTSIDE HEPATITIS C VIRUS SCREENING Routine 11/30/2022 OUTSIDE HDL Routine 08/02/2022 COLONOSCOPY FOR RESULT ENTRY ONLY Routine 08/25/2018 from Last 3 Months or Most Recently Relevant to Health Maintenance Results * Outside MR Imaging Report Only (12/13/2024 3:59 PM EDT) [facility] Provider IMG MR Final Res ult * Outside Imaging Report Only (12/13/2024 1:09 PM EDT) [facility] Provider IMG XR CHEST Final Res ult * HM DEXA SCAN (09/12/2024 4:48 PM EDT) [facility] Provider HEALTH MAINTENANCE Final Result * HM MAMMOGRAPHY FOR RESULT ENTRY ONLY (07/07/2024 10:20 AM EST) [facility] Provider HEALTH MAINTENANCE Final Result * Outside Hepatitis C Virus Screening (11/30/2022) [facility] Hepatitis C Screening - External Neg Result [facility] Provider LAB BLOOD ORDERABLES Justa l Result * Outside HDL (08/02/2022) [facility] HDL - External 73 40 - 80 mg/dL Result [facility] Provider LAB BLOOD ORDERABLES Justa l Result * HM COLONOSCOPY FOR RESULT ENTRY ONLY (08/25/2018) Impressions Laura Cardenas CMA - 08/25/2018 10 yr recall Result [facility] Provider HEALTH MAINTENANCE Edited Result - Final from Last 3 Months or Most Recently Relevant to Health Maintenance [place] [address] [address] [employer] CareToSave ADMINISTRATORS CareToSave ADMINISTRATORS CareToSave ADMINISTRATORS CareToSave ADMINISTRATORS [employer]ToSave ADMINISTRATORS [employer]ToSave ADMINISTRATORS Member Subscriber Plan / Payer (Ef fective 2019-Present) Name:Tracie Caro Relation to Subscriber:Self Name:Tracie Caro Payer ID:[id number] (NAIC) Type:PPO Address: [place] [id number] [employer] Member Subscriber Plan / Payer (Ef fective 2019-Present) Name:Caro Tracie Relation to Subscriber:Self Name:Tracie Caro Payer ID:[id number] (NAIC) Type:PPO Address: [place] [id number] [employer] Care Teams Marine Habitat Resource Specialist Relationship Specialty Start Date End Date Alexis Rincon MD [address] [place] [phone] [email or web address] PCP - General Internal Medicine 05/12/17 Alexis Rincon MD [address] [place] [phone] [email or web address] Historical LMR Provider 04/20/17 Additional Source Comments The information contained in this document represents components of the legal health record. It is not the complete legal health record.[facility]
--- OUTSIDE RECORDS SUMMARY | 2025-02-08 11:17 | XMS_ITS | Patient Health Record ---
Author Organization [employer] [facility] Address [address] [address] Care Team Providers Care Systems Trainer Name Role Phone Alexis Rincon MD Primary Care Provider Unavaila KEVIN Bravo Unavailable [phone] Allergies Allergen (clinical drug ingredient) Drug/Non Drug [...] Encounters Encounter Location Date Provider Diagnosis Total [facility] [address] [place] [address] 05/17/2024 KEVIN HICKS Encounter for gynecological examination [...] Provider Name:KEVIN Oropeza, 05/22/2025 03:00:00 PM, [address], [address], [place], [address], Insurance Providers Payer Name Payer Address Payer Phone Subscriber Number Group Number Insured Name Patient Relationship to Insured Coverage Start Date Coverage End Date [employer]MIN[employer] [place] [address] [address] [place] [address] [id number] CAROLINE SIMMONS Self - patient is the [...]
== END 2025-02-08 11:29 | disposition home or self-care (01) ==
PROVIDERS: Visit Provider Student in an Organized Health Care Education/Training Program
DX: M15.9 Polyosteoarthritis, unspecified (principal); M81.0 Age-related osteoporosis without current pathological fracture
CPT/HCPCS: 99203

== ENCOUNTER 2025-03-21 08:04 | Outpatient (AMB) | payer OTHER, SELFPAY ==
--- NOTE | 2025-03-21 08:06 | A.OFFVIS_ITS ---
Intake Visit Reasons: PO-Lt Knee 01/02/25 Intake Note: Tracie is a 69 year old female who presents with complaints of mild discomfort in her left knee after undergoing left knee arthroscopic surgery on 01/02/2025. The patient states that she has been doing quite a bit of bending while siding [place]. She denies any fevers or chills. She does take meloxicam as needed. Allergies amoxicillin Allergy (Severe, Verified 03/21/25 08:10) Anaphylaxis Penicillins Allergy (Severe, Verified 03/21/25 08:10) Anaphylaxis Medication List - Last Reconciled 03/21/25 by Ramone Pierce MD ibuprofen 400 mg PO Q6H PRN meloxicam 15 mg PO DAILY PFSH Medical History (Updated 03/21/25 @ 08:22 by Ramone Pierce MD) Breast cancer, right DRESS syndrome Osteoarthritis Osteoporosis Surgical History History of surgery H/O colonoscopy History of reconstruction of right breast Hx of right mastectomy Hx of breast surgery History of lumpectomy of right breast History of tonsillectomy Family History Mother Breast cancer Father CVD (cardiovascular disease) Social History Household Members: Spouse Housing: House Do you presently have visiting nurse or other home services: No Alcohol intake: never Patient Tobacco Use Status: Never used Tobacco Advance Directives Date on File: 11/30/22 service: No 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al status: employed 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: [employer] rt hand Physical Exam Extrem Other: Left knee examination shows a minimal effusion, minimal crepitus with range of motion, mild discomfort with range of motion, no instability Assessment & Plan Assessment & Plan (1) Left knee pain: Code(s): M25.562 - Pain in left knee Category: Medical Plan Mrs. Caro continues to do well after undergoing left knee arthroscopic surgery on 01/02/2025. She does have residual discomfort due to degenerative joint disease. She will continue with her activity modifications. She will follow up with me on an as-needed basis should her symptoms worsen in any way. Feel free to call me at any time should questions regarding her orthopedic management arise. I spent 20 minutes in reviewing the patient's records and imaging studies, seeing the patient and documenting in the medical record. Coding Level of Care Code Global (79512) Diagnoses Left knee pain M25.562
--- OUTSIDE RECORDS SUMMARY | 2025-03-21 08:53 | XMS_ITS | Patient Health Record ---
Author Organization [email or web address] [facility] Address [address] [address] Care Team Providers Care Registered Nurse Float Pool Name Role Phone Alexis Rincon MD Primary Care Provider Unavaila KEVIN Bravo Unavailable [phone] Allergies Allergen (clinical drug ingredient) Drug/Non Drug [...] Notes Problem Malignant neoplasm of female breast (534299426) Malignant neoplasm of unspecified site of right female breast (C50.911) Active confirmed Vital Signs Heart Rate 78 /min 05/17/2024 Temperature 97.3 degrees Fahrenheit 05/17/2024 Blood pressure diastolic 80 mm Hg 05/17/2024 Height 64 in 05/17/2024 Blood pressure systolic 122 mm Hg 05/17/2024 Weight 145 lbs 05/17/2024 BMI 24.89 kg/m2 05/17/2024 Encounters Encounter Location Date Provider Diagnosis Total [facility] [address] [place] [address] 05/17/2024 KEVIN HICKS Encounter for gynecological examination [...] Provider Name:KEVIN Oropeza, 05/22/2025 03:00:00 PM, [address], [address], [place], [address], Insurance Providers Payer Name Payer Address Payer Phone Subscriber Number Group Number Insured Name Patient Relationship to Insured Coverage Start Date Coverage End Date [employer] [place] [address] [address] [place] [address] [id number] CAROLINE SIMMONS Self - patient is the [...]
--- OUTSIDE RECORDS SUMMARY | 2025-03-21 08:53 | XMS_ITS | Clinical Summary ---
Author Organization [facility] Address [address] [place] [address] Phone Care Team Providers Care Lever Miller Name Role Phone Alexis Rincon MD Unavailable [phone] Alexis Rincon MD Primary Care Provider [phone] Allergies Active Allergy Reactions Criticality Noted Date [...] ial veins of left lower extremity 08/14/2017 Immunizations Immunization Administration Dates Next Due COVID-19 [...] Description 03/27/2025 1:30 PM EDT Office Visit [facility] Internal Medicine [address] [place] [address] Alexis Rincon MD [address] [place] [address] 09/18/2025 1:00 PM EDT Office Visit [facility] [address] [place], [place] [phone] Alexis Rincon MD [address] [place], [place] [phone] [email or web address] Health Maintenance Due Date Last Done Comments COLOGUARD 2002 FIT TEST 2002 FOBT 2002 SIGMOIDOSCOPY 2002 VIRTUAL COLONOSCOPY 2002 PNEUMOCOCCAL VACCINES (50+ years) (1 of 1 - PCV) 2007 INFLUENZA VACCINE (#1) 2025 , 04/29/2023, 05/06/2022, Additional history exists COVID-19 VACCINE (2024- season) 2025 06/22/2021, 07/13/2020, 06/22/2020 DEPRESSION SCREENING 09/05/2025 09/05/2024 [...] Procedure Name Priority Date/Time Associated Diagnosis Comments DEXA SCAN Routine 09/12/2024 4:48 PM EDT HM MAMMOGRAPHY Routine 07/07/2024 10:20 AM EST OUTSIDE HEPATITIS C VIRUS SCREENING Routine 11/30/2022 OUTSIDE HDL Routine 08/02/2022 COLONOSCOPY FOR RESULT ENTRY ONLY Routine 08/25/2018 from Last 3 Months or Most Recently Relevant to Health Maintenance Results * DEXA SCAN (09/12/2024 4:48 PM EDT) [facility] Provider HEALTH MAINTENANCE Final Result * HM MAMMOGRAPHY FOR RESULT ENTRY ONLY (07/07/2024 10:20 AM EST) [facility] Provider HEALTH MAINTENANCE Final Result * Outside Hepatitis C Virus Screening (11/30/2022) Hepatitis C Screening - External Neg [facility] Provider LAB BLOOD ORDERABLES Justa l Result * Outside HDL (08/02/2022) HDL - External 73 40 - 80 mg/dL [facility] Provider LAB BLOOD ORDERABLES Justa l Result * COLONOSCOPY FOR RESULT ENTRY ONLY (08/25/2018) Impressions Laura Cardenas CMA - 08/25/2018 10 yr recall [facility] Jeffery ATKINS HEALTH MAINTENANCE Edited Result - Final from Last 3 Months or Most Recently Relevant to Health Maintenance Insurance [employer]AT[employer] [facility] ADMINISTRATORS Member Subscriber Plan / Payer ( fective 2019-Present) Name:Tracie Caro Relation to Subscriber:Self Name:Tracie Caro Payer ID:[id number] (NAIC) Type:PPO Address: [place] [phone] [employer]IST[employer] Care Teams Lever Miller Relationship Specialty Start Date End Date Alexis Rincon MD [address] [place] [address] [email or web address] PCP - General Internal Medicine 05/12/17 Alexis Rincon MD [address] [place] [address] [email or web address] Historical LMR Provider 04/20/17 Additional Source Comments The information contained in this document represents components of the legal health record. It is not the complete legal health record.[facility]
== END 2025-03-21 08:20 | disposition home or self-care (01) ==
LOC: HO.HOS 08:04
PROVIDERS: Visit Provider Orthopaedic Surgery
DX: M25.562 Pain in left knee (principal)
CPT/HCPCS: 99024

== ENCOUNTER 2025-05-24 09:14 | Outpatient (REF) | payer OTHER, SELFPAY ==
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
--- NOTE | ~2025-05-24 | MM_ITS ---
EXAMINATION: MM DIAGNOSTIC DIGITAL BREAST TOMOSYNTHESIS, LEFT Limited left breast ultrasound. CLINICAL INFORMATION: History of right breast cancer status post mastectomy 2014. Left breast nodular tissue/lump on clinical exam felt by patient's physician. Patient does not feel the palpable area. Family history of breast cancer including mother at age 35. COMPARISON: Mammography: Prior imaging on PACS. TECHNIQUE: Digital breast tomosynthesis is performed in both the craniocaudal and mediolateral oblique views along with computer-aided detection (CAD). Synthesized 2D images are generated from the tomosynthesis. FINDINGS: There are scattered areas of fibroglandular density. No suspicious masses calcifications or other abnormal findings. Targeted color Doppler ultrasound scanning in the upper inner quadrant area physician felt palpable lump from 9-12 o'clock demonstrates normal fibroglandular breast tissue. There is no sonographic abnormal finding. MM/MM tomosynthesis diagnostic LT IMPRESSION: No mammographic or sonographic abnormal finding in the upper inner quadrant to account for the palpable lump felt by the patient's physician. Recommend clinical evaluation and follow-up. Patient has a history of right breast cancer. Breast MRI with contrast could be considered for further evaluation. Breast MRI needs to be ordered by the patient's providing clinician. The findings and recommendations were discussed with the patient. ASSESSMENT: BI-RADS Category 1: Negative RECOMMENDATION: 1 year F/U Results were discussed with the patient at time of visit. This patient's information was entered into a reminder system with a target due date for their next mammogram. Electronically signed by: Sarah Bae DO 05/24/2025 11:46 AM [facility]
--- OUTSIDE RECORDS SUMMARY | 2025-05-24 17:08 | XMS_ITS | Clinical Summary ---
Author Organization [facility] Address [address] [place] [address] Phone Care Team Providers Care Feather Curling Machine Operator Name Role Phone Alexis Rincon MD Unavailable [phone] Alexis Rincon MD Primary Care Provider [phone] Allergies Active Allergy Reactions Criticality Noted Date Comments Amoxicillin Anaphylaxis High 11/29/2022 Medications APPLE CIDER VINEGAR ORAL Take 2 gummies a day Active calcium citrate/vitamin D3 (CALCIUM CITRATE + ORAL) Take 1 capsule by mouth daily. Active acetaminophen (TYLENOL) 500 MG tablet Take 1,000 mg by mouth daily. Active meloxicam (MOBIC) 15 MG tablet Take 15 mg by mouth daily as needed. 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 08/14/2017 Encounters Date Type Department Care Team Description 05/24/2025 Orders Only [facility] Internal Medicine [address] [place] [address] ProviderMoo MD 03/27/2025 1:30 PM EDT Office Visit [facility] Internal Medicine [address] [place] [address] Alexis Rincon MD Anxiety (Primary Dx); Adjustment insomnia from Last 3 Months Immunizations Immunization Administration [...] Sign Reading Time Taken Comments Blood Pressure 132/78 03/27/2025 1:29 PM EDT Pulse 76 03/27/2025 1:29 PM EDT Temperature 36.3 C (97.3 F) 03/27/2025 1:29 PM EDT Respiratory Rate 13 03/27/2025 1:29 PM EDT Oxygen Saturation 97% 03/27/2025 1:29 PM EDT Inhaled Oxygen Concentration - - Weight 67 kg (147 lb 12.8 oz) 03/27/2025 1:29 PM EDT Height 163.7 cm (5' 4.45 ) 03/27/2025 1:29 PM ED T Body Mass Index 25.02 03/27/2025 1:29 PM EDT Plan of Treatment Upcoming Encounters Date Type Department Care Team (Late st Contact Info) Description 09/25/2025 1:00 PM EDT Office Visit [facility] Internal Medicine [address] [place] [address] Alexis Rincon MD [address] [place] [address] Health Maintenance Due Date Last Done Comments COLOGUARD 2002 FIT TEST 2002 FOBT 2002 SIGMOIDOSCOPY 2002 VIRTUAL COLONOSCOPY 2002 PNEUMOCOCCAL VACCINES (50+ years) (1 of 1 - PCV) 2007 INFLUENZA VACCINE (#1) 2025 , 04/29/2023, 05/06/2022, Additional history exists COVID-19 VACCINE ( season) 2025 06/22/2021, 07/13/2020, 06/22/2020 SCREENING FOR DIABETES 08/02/2025 08/02/2022, 2018 DEPRESSION SCREENING 09/05/2025 09/05/2024 MAMMOGRAM 07/07/2026 05/24/2025, 08/2024, 07/07/2024, Additional history exists LIPID PANEL [...] STATUS SCREENING (Once After 26 Yrs) Completed 03/27/2025 HEPATITIS A VACCINES Aged Out No long er eligible based on patient's age to complete this topic HIB VACCINES Aged Out No longer eligi ble based on patient's age to complete this topic IPV VACCINES Aged Out No longer eligi ble based on patient's age to complete this topic MENINGOCOCCAL VACCINES (ACWY) Aged Out No longer eligible based on patient's age to complete this topic MENINGOCOCCAL VACCINES (B) Aged Out N o longer eligible based on patient's age to complete this topic Medical Devices Not on file Procedures Procedure Name Priority Date/Time Associated Diagnosis Comments HM MAMMOGRAPHY Routine 05/24/2025 1:09 PM EST OUTSIDE US BREAST REPORT ONLY Routine 05/24/2025 12:55 PM EST HM DEXA SCAN Routine 09/12/2024 4:48 PM EDT OUTSIDE HEPATITIS C VIRUS SCREENING Routine 11/30/2022 OUTSIDE HDL Routine 08/02/2022 OUTSIDE GLUCOSE FASTING Routine 08/02/2022 COLONOSCOPY FOR RESULT ENTRY ONLY Routine 08/25/2018 from Last 3 Months or Most Recently Relevant to Health Maintenance Results * MAMMOGRAPHY FOR RESULT ENTRY ONLY (05/24/2025 1:09 PM EST) Historical Provider HEALTH MAINTENANCE Final Result * Outside US Breast Report Only (05/24/2025 12:55 PM EST) Historical Provider IMG US BREAST Final Res ult * HM DEXA SCAN (09/12/2024 4:48 PM EDT) Historical Provider HEALTH MAINTENANCE Final Result * Outside Hepatitis C Virus Screening (11/30/2022) Hepatitis C Screening - External Neg Historical Provider LAB BLOOD ORDERABLES Justa l Result * (ABNORMAL) Outside Glucose,Fasting (08/02/2022) Glucose, fasting - External 100(A) 65 - 99 mg/dL us Historical Provider LAB BLOOD ORDERABLES Justa l Result * Outside HDL (08/02/2022) HDL - External 73 40 - 80 mg/dL Historical Provider LAB BLOOD ORDERABLES Justa l Result * COLONOSCOPY FOR RESULT ENTRY ONLY (08/25/2018) Impressions Laura Cardenas, HATTIE - 08/25/2018 10 yr recall us Historical Provider HEALTH MAINTENANCE Edited Result - Final from Last 3 Months or Most Recently Relevant to Health Maintenance Insurance [employer] [address] [place] [address] [employer]EFITS [employer]MINISTRAT[employer] Care Teams Feather Curling Machine Operator Relationship Specialty Start Date End Date Alexis Rincon MD [address] [place] [address] [email or web address] PCP - General Internal Medicine 05/12/17 Alexis Rincon MD [address] [place] [address] [email or web address] Historical LMR Provider 04/20/17 Additional Source Comments The information contained in this document represents components of the legal health record. It is not the complete legal health record.[facility]
--- OUTSIDE RECORDS SUMMARY | 2025-05-24 17:08 | XMS_ITS | Patient Health Record ---
Author Organization [facility] Address [address] [address] Care Team Providers Care Lockstitch Sleeve Maker Name Role Phone Alexis Rincon MD Primary Care Provider Unavaila KEVIN Bravo Unavailable [phone] Allergies Allergen (clinical drug ingredient) Drug/Non Drug [...] Notes Problem Malignant neoplasm of female breast ([id number]) Malignant neoplasm of unspecified site of right female breast (C50.911) Active confirmed Vital Signs Temperature 97.7 degrees Fahrenheit 05/22/2025 Blood pressure diastolic 80 mm Hg 05/22/2025 Height 64 in 05/22/2025 Blood pressure systolic 134 mm Hg 05/22/2025 Weight 144 lbs 05/22/2025 BMI 24.71 kg/m2 05/22/2025 Encounters Encounter Location Date Provider Diagnosis Total [facility] [address] [place] [address] 05/22/2025 KEVIN HICKS Encounter for gynecological examination [...] - N63.22) She gets her mammos at . Likely dense breast tissue, but with a history of right breast cancer, it is especially important to rule out carcinoma 05/22/2025 Malignant neoplasm of unspecified site of right female breast (ICD-10 - C50.911) Plan Of Treatment Pending Test Test Name Order Date Diagnostic Left Breast Mammo/US 05/22/20 25 MM Digital Screening Mammogram 3D 2020 MM Digital Screening Mammogram 3D 2021 MM Digital Screening Mammogram 3D 2022 MM Digital Screening Mammogram 3D 2023 MM Digital Screening Mammogram 3D 2024 Next Appt Details Provider Name:KEVIN Oropeza, 05/25/2026 01:00:00 PM, [address], [place], [address], Insurance Providers Payer Name Payer Address Payer Phone Subscriber Number Group Number Insured Name Patient Relationship to Insured Coverage Start Date Coverage End Date [employer] [place] [address] [address] [place] [address] [id number] CAROLINE SIMMONS Self - patient is the insured Medical (General) History Medical History History ICD Code Malignant neoplasm of unspecified site o f right female breast C50.911 COVID-19 U07.1 Surgical History Surgery Date(Month/Year) Right mastectomy with a silicone implant 2013 DxC miscarriage 1987 left leg vein treatment 02/2021 left knee arthroscopy 12/2024 Hospitalization History Reason Date(Month/Year) Severe allergic reaction to amoxicillin 11/2022 See surgical history
--- OUTSIDE RECORDS SUMMARY | 2025-05-24 17:08 | XMS_ITS | Encounter Summary ---
Author Organization [facility] Address [address] [place] [address] Phone Care Team Providers Care Cognos Developer Name Role Phone Alexis Rincon MD Unavailable [phone] Alexis Rincon MD Primary Care Provider [phone] Encounter Details Date Type Department Care Team (Late st Contact Info) Description 05/24/2025 Orders Only [facility] Internal Medicine [address] [place] [address] Provider, MD Moo [address] [place] [address] Social History Tobacco Use Types Packs/Day Years Used Date Smoking Tobacco: Never Smokeless Tobacco: Never Alcohol Use Standard Drinks/Week Comments Yes 5 [...] your housing situation today? I have davida reyes 09/08/2023 How many times have you move [...] Orientation Straight 11/14/2021 8: 02 PM EDT documented as of this encounter Plan of Treatment Upcoming Encounters Date Type Department Care Team (Late st Contact Info) Description 09/25/2025 1:00 PM EDT Office Visit [facility]go[facility] Internal Medicine [address] [place] [address] Alexis Rincon MD [address] [place] [address] documented as of this encounter Procedures Procedure Name Priority Date/Time Associated Diagnosis Comments HM MAMMOGRAPHY Routine 05/24/2025 1:09 PM EST OUTSIDE US BREAST REPORT ONLY Routine 05/24/2025 12:55 PM EST documented in this encounter Results * HM MAMMOGRAPHY FOR RESULT ENTRY ONLY (05/24/2025 1:09 PM EST) Historical Provider HEALTH MAINTENANCE Final Result * Outside US Breast Report Only (05/24/2025 12:55 PM EST) Historical Provider IMG US BREAST Final Res ult documented in this encounter Visit Diagnoses Not on filedocumented in this encounter Additional Health Concerns Assessment Noted Time PHQ-2 Depression Total Score: 1 09/06/19 25 4:57 PM EST documented as of this encounter Care Teams Cognos Developer Relationship Specialty Start Date End Date Alexis Rincon MD [address] [place] [address] PCP - General Internal Medicine 05/12/17 Alexis Rincon MD [address] [place] [address] Historical LMR Provider 04/20/17 documented as of this encounter Additional Source Comments The information contained in this document represents components of the legal health record. It is not the complete legal health record.[facility]
== END 2025-05-24 09:15 | disposition home or self-care (01) ==
LOC: HO.MAMMO 09:14
PROVIDERS: PCP Internal Medicine; Visit Provider Obstetrics & Gynecology
DX: N63.22 Unspecified lump in the left breast, upper inner quadrant (principal)
CPT/HCPCS: 76642; 77061; 77065

== ENCOUNTER → 2025-05-24 09:30 | Outpatient (BNV) | payer OTHER, SELFPAY | PROVIDERS: PCP Internal Medicine; Visit Provider Internal Medicine | DX: N63.22 Unspecified lump in the left breast, upper inner quadrant (principal) | CPT/HCPCS: 76642; 77061; 77065 ==